=== PATIENT | male | born 1960 | race Caucasian/White ===

== ENCOUNTER 2018-12-14 21:30 | Inpatient (IN) | payer MEDICARE, MEDICAID ==
[~2018-12-14] VITALS: Ht 195.6 cm; Wt 62.1 kg
[2018-12-14 21:45] VITALS: BP 122/71
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
--- NOTE | 2018-12-14 21:50 | NUR ---
GPS ADMISSION NOTE, RECEIVED PATIENT FROM [facility]. PATIENT ARRIVED ON THIS UNIT AT 2145 VIA STRETCHER WITH 2 EMT ESCORTS. PATIENT ADMITTED ON A 5150 HOLD FOR DTO AND GD. PER HOLD PATIENT BECAME EXTREMELY AGITATED, AGGRESSIVE, AND VIOLENTLY REACTED WHEN ASKED TO RELINQUISH HIS PAPERWORK. PATIENT WAS YELLING," HOW DARE YOU TRY TO TAKE AWAY MY INSURANCE INFORMATION. 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 PATIENT IS INCAPABLE OF ARTICULATING A PLAN OF SELF CARE. THE 5150 WAS REVIEWED AND THE DOCUMENTATION IN THE 5150 HOLD APPEARS TO REFLECT THE PRESENTATION OF THE PATIENT. UPON FACE TO FACE ASSESSMENT PATIENT IS NOTED TO BEING HYPERVERBAL, DISHEVELED, DISORGANIZED, DEMANDING, COOPERATIVE, AND NEEDS REDIRECTION. PATIENT IS CURRENTLY LYING IN BED AWAKE, HAS NO S/S OR COMPLAINTS OF PAIN. PATIENT IS DISPLAYING NO S/S OF APPARENT DISTRESS. PATIENT BREATHING IS UNLABORED WITH EQUAL RISE AND FALL OF THE CHEST. PATIENT IS ALERT AND ORIENTATED X 3 ON ROOM AIR. PATIENT ASSISTED WITH TURING AND REPOSITIONING Q2HR AND PRN FOR COMFORT AND CIRCULATION. PATIENT HAS NO NEEDS AT THIS TIME. PATIENT DENIES SUICIDE IDEATIONS AND HOMICIDAL IDEATIONS AT THIS TIME. PATIENT REFUSED TO SIGNS ANY PAPER WORK. PATIENT ADVISED OF HIS HOLD AND PATIENT RIGHTS BOOKLET GIVEN. PATIENT IS UNDER THE PSYCHIATRIC CARE OF DR. ELMORE AND THE MEDICAL CARE OF DR LIMON. PATIENT BELONGINGS WERE INVENTORIED AND CHECKED FOR CONTRABAND. ALL CONTRABAND REMOVED AND STORED IN PATIENT HALLWAY LOCKER. PATIENT ADVANCED DIRECTIVES PREFERENCE, IMMUNIZATIONS QUESTIONER, NECESSARY PAPERWORK COMPLETED. PATIENT SKIN ASSESSMENT COMPLETED. PATIENT ORIENTATED TO ROOM, FLOOR, AND STAFF WITH ALL QUESTIONS ANSWERED. PATIENT EDUCATED ON THE USE OF THE CALL ARRIETA. PATIENT BED SIDE RAILS ARE UP X 2 FOR SAFETY. PATIENT BED IS LOCKED, LOW AND I WILL CONTINUE TO MONITOR THIS PATIENT Q 15 MIN WITH THE HELP OF STAFF TO MAINTAIN SAFETY.
[2018-12-14] MEDS ORDERED: LORAZEPAM 0.5 MG TABLET PO PRN (22:30)
[2018-12-14] MEDS ORDERED: ACETAMINOPHEN 325 MG TABLET PO PRN (22:30)
[2018-12-14] MEDS ORDERED: MAG HYDROX/AL HYDROX/SIMETH 30 ML UDC PO PRN (22:30)
[2018-12-14] MEDS ORDERED: MAGNESIUM HYDROXIDE 30 ML UDC PO PRN (22:30)
[2018-12-14] MEDS ORDERED: DIPH25CA83 PO (22:46)
[2018-12-14] MEDS ORDERED: MELA3TAB63 PO (22:47)
[2018-12-14] MEDS ORDERED: QUET100T PO (22:47)
[2018-12-14] MEDS ORDERED: CLON2TAB PO ×2 (22:49)
--- NOTE | 2018-12-14 22:55 | NUR ---
GPS/RN NOTES PATIENT REFUSE BLOOD SUGAR BE CHECKED AT THIS TIME, HAD A SNACK PRIOR AND REFUSE TO HAVE MRSA SWAB WILL FOLLOW UP IN AM.
[2018-12-14] MEDS ORDERED: BLOOD SUGAR DIAGNOSTIC 1 EACH STRIP IN ONE (23:00)
[2018-12-15 09:00] VITALS: BP 97/65
--- NOTE | 2018-12-15 09:22 | NUR ---
[facility] SWAB SENT, DONE OF BOTH NARES.
[2018-12-15] MEDS ORDERED: diphenhydrAMINE HCL 25 MG CAPSULE PO PRN (09:30)
[2018-12-15] MEDS: NICOTINE PATCH (14MG) 14 MG PATCH.TD24 TD SCH (10:26)
--- NOTE | 2018-12-15 10:30 | NUR ---
ruminates over things and repeats self often.
--- NOTE | 2018-12-15 14:30 | NUR ---
dr. mace in and discussed med regimen with pt. but refused to sign med consent.
[2018-12-15] MEDS: DIVALPROEX SODIUM 125 MG CAP.SPRINK PO SCH ×3 (15:00→20:53)
[2018-12-15 16:00] VITALS: BP 104/69
--- NOTE | 2018-12-15 16:33 | NUR ---
refused afternoon depakote.
[2018-12-15 20:02] VITALS: BP 148/68
[2018-12-15] MEDS: OLANZAPINE 5 MG/TAB.RAPDIS PO SCH (20:13)
[2018-12-16 07:49] LABS: BASOPHILS # (AUTO) 0.1 /CMM (0.0-0.2); HEMATOCRIT 45 % (39-51); HEMOGLOBIN 15.1 g/dL (13.5-17.5); LYMPHOCYTES % (AUTO) 30.4 % (20.0-44.0); MEAN CORPUSCULAR HGB CONC 34 g/dl (31.0-36.0); MEAN CORPUSCULAR VOLUME 95 fL (80-96); MONOCYTES # (AUTO) 0.5 /CMM (0.1-1.30); MONOCYTES % (AUTO) 7.8 % (2.0-12.0); NEUTROPHILS # (AUTO) 3.7 /CMM (1.8-8.9); NEUTROPHILS % (AUTO) 55.8 % (43.0-81.0); PLATELET COUNT (AUTO) 177 /CMM (150-450); WHITE BLOOD COUNT (AUTO) 6.7 K/uL (4.3-11.0)
[2018-12-16 07:59] LABS: CALCIUM, SERUM 8.6 mg/dL (8.5-10.1); CREATININE 0.7 mg/dL (0.6-1.3); POTASSIUM 3.8 mmol/L (3.5-5.1)
[2018-12-16 08:00] VITALS: BP 100/76
[2018-12-16] MEDS: OLANZAPINE 5 MG/TAB.RAPDIS PO SCH ×3 (08:01→21:02)
[2018-12-16] MEDS: NICOTINE PATCH (14MG) 14 MG PATCH.TD24 TD SCH (08:01)
[2018-12-16] MEDS: DIVALPROEX SODIUM 125 MG CAP.SPRINK PO SCH ×2 (08:06→21:00)
[2018-12-16 16:00] VITALS: BP 101/61
[2018-12-16 20:24] VITALS: BP 108/58
--- NOTE | 2018-12-16 22:18 | NUR ---
GPS RN NOTE: PATIENT REFUSED DEPAKOTE, EXPLAINED THE RISK AND BENEFITS X 3 ATTEMPTS, BUT PATIENT STILL REFUSED AND STATED THAT HE NEEDS TO TALK TO THE DOCTOR REGARDING HIS MEDICATIONS. WILL CONTINUE TO FOLLOW UP
[2018-12-17 08:00] VITALS: BP 102/61
[2018-12-17] MEDS: OLANZAPINE 5 MG/TAB.RAPDIS PO SCH ×3 (08:10→20:51)
[2018-12-17] MEDS: NICOTINE PATCH (14MG) 14 MG PATCH.TD24 TD SCH (08:10)
[2018-12-17] MEDS: DIVALPROEX SODIUM 125 MG CAP.SPRINK PO SCH (08:12)
--- NOTE | 2018-12-17 13:29 | NUR ---
Family contact: SW called the pts mother, Jackie ([phone]), and left a voicemail stating that the SW would like a call back to discuss the pts initial treatment plan and discharge plan.
--- NOTE | 2018-12-17 13:30 | NUR ---
Family contact: BILL called the pts cousin, Freda ([phone]), and the pts initial treatment and discharge plan was discussed. She stated that the pts mother is preoccupied with her being in hospice and that Freda would be the primary contact for this case. She stated that the pt has disability and that he makes around $1000 a month and that a board and care placement would be appropriate for him. SW stated that she will attempt to find placement in a board and care or a retirement facility. BILL stated that she would keep her updated regarding the pts care.
--- NOTE | 2018-12-17 15:00 | NUR ---
GROUP NOTE: SW encouraged pt to participate in group therapy on this present day discussing "discharge planning." Pt was asleep and not easily aroused.
--- NOTE | 2018-12-17 15:33 | NUR ---
Initial Discharge Plan: Pt currently resides at a home where his brother was living with him located at [address] [place] [address]. Per pt, he would like to return. BILL will work with the pt and the MD regarding appropriate discharge planning. SW will form a safe and proper discharge.
[2018-12-17 16:25] VITALS: BP 98/59
[2018-12-17 21:13] VITALS: BP 110/61
[2018-12-18 08:00] VITALS: BP 100/57
[2018-12-18] MEDS: NICOTINE PATCH (14MG) 14 MG PATCH.TD24 TD SCH (08:18)
[2018-12-18] MEDS: OLANZAPINE 5 MG/TAB.RAPDIS PO SCH ×3 (08:18→20:16)
--- NOTE | 2018-12-18 14:55 | NUR ---
Substance Abuse Intervention: SW conducted a substance abuse intervention with the pt due to his cannabis and alcohol use.
--- NOTE | 2018-12-18 14:56 | NUR ---
Family contact: SW called the pts cousin, Freda ([phone]), and left a message inquiring about the pts fingers per the request of Dr. Crawford. SW asked for a call back.
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
[2018-12-18 15:59] LABS: ALBUMIN 3.6 g/dL (3.4-5.0); BILIRUBIN,DIRECT 0.1 mg/dL (0.0-0.2); BILIRUBIN,TOTAL 0.3 mg/dL (0.2-1.0); TOTAL PROTEIN, SERUM 6.4 g/dL (6.4-8.2)
[2018-12-18 16:00] VITALS: BP 101/62
--- NOTE | 2018-12-18 18:11 | NUR ---
RN GPS NOTES PT AWAKE, ALERT AND ORIENTED, ATE DINNER, TOLERATED WELL, NO BEHAVIOR PROBLEM NOTED, COMPLIANT WITH MEDICATIONS, CALM AND COOPERATIVE WITH CARE, AMBULATES WITH STEADY GAIT.
[2018-12-18 20:35] VITALS: BP 104/60
[2018-12-18] MEDS ORDERED: ATORVASTATIN 10 MG TABLET PO SCH (22:00)
[2018-12-19 08:00] VITALS: BP 100/54
[2018-12-19] MEDS: NICOTINE PATCH (14MG) 14 MG PATCH.TD24 TD SCH (08:25)
[2018-12-19] MEDS: OLANZAPINE 5 MG/TAB.RAPDIS PO SCH ×3 (08:25→20:06)
--- NOTE | 2018-12-19 08:55 | NUR ---
PT MUTTERING TO SELF. AGREEABLE TO TAKING MEDICATION. WILL CONTINUE TO MONITOR.
[2018-12-19] MEDS: risperiDONE 1 MG TABLET PO SCH ×2 (10:00→20:00)
--- NOTE | 2018-12-19 10:27 | NUR ---
PT REFUSED TO TAKE MEDICATION RISPERDONE STATES IT GIVES PEOPLE WITH AUTISM SEIZURES.
[2018-12-19 16:00] VITALS: BP 100/75
--- NOTE | 2018-12-19 16:02 | NUR ---
Group Note: SW encouraged pt to participate in group therapy on 12/19/18 at 2pm discussing the topic of depression. 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 Pt is delusional and inappropriate for group.
--- NOTE | 2018-12-19 19:36 | NUR ---
UP IN BED, AWAKE, ALERT, ORIENTED X3. SHOWS NO S/S OF PAIN. CALM, QUIET. AMBULATORY. MED COMPLIANT. ENVIRONMENTAL SAFETY CHECK DONE. SAFETY PRECAUTION OBSERVED. BED ON LOWEST POSITION, BED ALARM ON. WILL CONTINUE TO MONITOR Q 15 MINS. FOR SAFETY.
--- NOTE | 2018-12-19 20:08 | NUR ---
REFUSED RISPERIDONE 1 MG TAB PO, PATIENT STATED," I DON'T TAKE IT BECAUSE I'M HAVING SEIZURES WHEN TAKING IT."
[2018-12-19 20:56] VITALS: BP 100/61
[2018-12-19] MEDS: ATORVASTATIN 40 MG TABLET PO SCH (21:30)
--- NOTE | 2018-12-20 04:33 | NUR ---
AWAKE, UNEASY, ANXIOUS, OFFERED ATIVAN 0.5 MG TAB 1 PO GIVEN.
[2018-12-20 08:00] VITALS: BP 92/63
[2018-12-20] MEDS: risperiDONE 1 MG TABLET PO SCH (08:00)
[2018-12-20] MEDS: OLANZAPINE 5 MG/TAB.RAPDIS PO SCH ×3 (08:10→19:54)
[2018-12-20] MEDS: NICOTINE PATCH (14MG) 14 MG PATCH.TD24 TD SCH (08:10)
--- NOTE | 2018-12-20 15:05 | NUR ---
EKG RESULT REPORTED TO DR. ELMORE AND ORDERED LITHIUM 150 MG PO Q12HR AND START FIRST DOSE NOW.
[2018-12-20] MEDS: LITHIUM CARBONATE 150 MG CAPSULE PO SCH ×2 (15:15→22:04)
[2018-12-20 16:00] VITALS: BP 106/70
--- NOTE | 2018-12-20 19:41 | NUR ---
GPS/RN OPENING NOTES RECEIVED PATIENT IN BED, AWAKE, ALERT X3, ABLE TO VERBALIZE NEEDS, CAN RESPOND AND REPORTED REQUEST TO HAVE A COPY OF HIS HEALTH INSURANCE CARD IN MORNING. NO PAIN REPORTED OR OBSERVED, RESTING COMFORTABLY. WILL MONITOR. RECEIVED ENDORSEMENT FROM AM RN FOR KWAME.
[2018-12-20 20:00] VITALS: BP 98/60
[2018-12-20 20:10] VITALS: BP 98/60
[2018-12-20] MEDS: ATORVASTATIN 40 MG TABLET PO SCH (22:04)
[2018-12-21 08:00] VITALS: BP 92/59
[2018-12-21] MEDS: NICOTINE PATCH (14MG) 14 MG PATCH.TD24 TD SCH (08:14)
[2018-12-21] MEDS: OLANZAPINE 5 MG/TAB.RAPDIS PO SCH ×3 (08:14→20:32)
[2018-12-21] MEDS: LITHIUM CARBONATE 150 MG CAPSULE PO SCH ×2 (08:14→16:43)
[2018-12-21 16:00] VITALS: BP 113/77
--- NOTE | 2018-12-21 17:34 | NUR ---
GPS NOTE THE PATIENT ALERT AND ORIENTED X3. DENIES SOB. RESPIRATION REGULAR AND UNLABORED. DENIES PAIN. DENIES SI, HI, VISUAL AND AUDITORY HALLUCINATIONS. THE PATIENT IN STABLE CONDITION. REMAINS MEDICATION COMPLIANT. BED LOW AND LOCKED. SAFETY CHECK DONE. WILL CONTINUE TO MONITOR.
--- NOTE | 2018-12-21 19:30 | NUR ---
GPS RN OPENING NOTES RECEIVED PATIENT SITTING AT THE EDGE OF THE BED. BED IS LOW AND LOCKED, SIDE RAILS UP X2. A.O X3. ABLE TO AMBULATE. PATIENT CALM AND COOPERATIVE, EASILY REDIRECTABLE. RESPIRATIONS ARE EVEN AND UNLABORED, NO SOB NOTED, DENIES PAIN. NO APPARENT DISTRESS. ID BAND ON, ASSESSED ENVIRONMENT FOR CONTRABAND AND SAFETY. WILL CONTINUE TO MONITOR Q15 MINS FOR SAFETY AND BEHAVIOR.
[2018-12-21 20:55] VITALS: BP 108/69
[2018-12-21] MEDS: ATORVASTATIN 40 MG TABLET PO SCH (21:37)
[2018-12-22 08:00] VITALS: BP 99/57
[2018-12-22] MEDS: OLANZAPINE 5 MG/TAB.RAPDIS PO SCH ×3 (08:05→19:58)
[2018-12-22] MEDS: NICOTINE PATCH (14MG) 14 MG PATCH.TD24 TD SCH (08:20)
[2018-12-22] MEDS: LITHIUM CARBONATE 150 MG CAPSULE PO SCH ×2 (08:21→17:12)
[2018-12-22 16:00] VITALS: BP 106/65
[2018-12-22 20:06] VITALS: BP 98/58
[2018-12-22] MEDS: ATORVASTATIN 40 MG TABLET PO SCH (21:08)
[2018-12-23] MEDS: OLANZAPINE 5 MG/TAB.RAPDIS PO SCH ×3 (07:52→22:25)
[2018-12-23 08:00] VITALS: BP 105/61
[2018-12-23] MEDS: NICOTINE PATCH (14MG) 14 MG PATCH.TD24 TD SCH (08:31)
[2018-12-23] MEDS: LITHIUM CARBONATE 150 MG CAPSULE PO SCH ×2 (08:31→16:45)
[2018-12-23 16:00] VITALS: BP 120/71
[2018-12-23 19:52] VITALS: BP 106/68
[2018-12-23] MEDS: ATORVASTATIN 40 MG TABLET PO SCH (22:24)
[2018-12-24 08:00] VITALS: BP 100/65
[2018-12-24 08:06] LABS: BASOPHILS # (AUTO) 0.1 /CMM (0.0-0.2); BASOPHILS % (AUTO) 0.8 % (0.0-2.0); EOSINOPHILS % (AUTO) 6.6 % (0.0-6.0); HEMATOCRIT 43 % (39-51); HEMOGLOBIN 14.1 g/dL (13.5-17.5); LYMPHOCYTES # (AUTO) 1.9 /CMM (0.8-4.8); LYMPHOCYTES % (AUTO) 28.2 % (20.0-44.0); MEAN CORPUSCULAR HGB CONC 33 g/dl (31.0-36.0); MEAN CORPUSCULAR VOLUME 96 fL (80-96); MONOCYTES # (AUTO) 0.7 /CMM (0.1-1.30); MONOCYTES % (AUTO) 10.5 % (2.0-12.0); NEUTROPHILS # (AUTO) 3.6 /CMM (1.8-8.9); NEUTROPHILS % (AUTO) 53.9 % (43.0-81.0); PLATELET COUNT (AUTO) 211 /CMM (150-450); RED BLOOD CELL COUNT(AUTO) 4.46 MIL/uL (4.5-6.0); WHITE BLOOD COUNT (AUTO) 6.6 K/uL (4.3-11.0)
[2018-12-24 08:21] LABS: ALBUMIN 3.5 g/dL (3.4-5.0); BILIRUBIN,TOTAL 0.5 mg/dL (0.2-1.0); CALCIUM, SERUM 8.8 mg/dL (8.5-10.1); CREATININE 0.7 mg/dL (0.6-1.3); POTASSIUM 3.9 mmol/L (3.5-5.1); TOTAL PROTEIN, SERUM 6.5 g/dL (6.4-8.2)
[2018-12-24] MEDS: NICOTINE PATCH (14MG) 14 MG PATCH.TD24 TD SCH (08:44)
[2018-12-24] MEDS: LITHIUM CARBONATE 150 MG CAPSULE PO SCH ×2 (08:45→17:19)
[2018-12-24] MEDS: OLANZAPINE 5 MG/TAB.RAPDIS PO SCH ×3 (08:47→20:06)
--- NOTE | 2018-12-24 15:10 | NUR ---
Individual Intervention: SW met with the pt and explained the reasoning behind SNF placement and the pt was not receptive. SW spoke to the pts nurse who also attempted to speak to the pt about his placement and have the pt understand.
--- NOTE | 2018-12-24 15:20 | NUR ---
Group Note: SW encouraged pt to participate in group therapy on 12/24/18 at 2pm discussing the topic of impaired reality testing. Pt began discussing that everyone does not believe him but he needs to go [facility], [facility], to have his fingers reattached to his body. SW stated that was not true and the pt became agitated and refused to attend group.
[2018-12-24 16:00] VITALS: BP 100/53
[2018-12-24 20:19] VITALS: BP 102/52
[2018-12-24] MEDS: ATORVASTATIN 40 MG TABLET PO SCH (22:11)
[2018-12-24] MEDS: TEMAZEPAM 7.5 MG CAPSULE PO PRN (22:11)
[2018-12-25 08:00] VITALS: BP 109/66
--- NOTE | 2018-12-25 08:44 | NUR ---
SNF Referral: BILL faxed referrals to two facilities listed below. [facility] to the fax number: [phone] [facility] to the fax number: [phone]
[2018-12-25] MEDS: NICOTINE PATCH (14MG) 14 MG PATCH.TD24 TD SCH (08:53)
[2018-12-25] MEDS: LITHIUM CARBONATE 150 MG CAPSULE PO SCH ×3 (08:53→16:15)
[2018-12-25] MEDS: OLANZAPINE 5 MG/TAB.RAPDIS PO SCH ×3 (08:53→20:15)
--- NOTE | 2018-12-25 13:42 | NUR ---
SNF Referral: [facility] to the fax number: [phone].
--- NOTE | 2018-12-25 13:42 | NUR ---
SNF Referral: RICHI ([phone]) from [facility] contacted the SW and stated that the pt was accepted to their facility.
--- NOTE | 2018-12-25 13:43 | NUR ---
SNF Referral: Jeffrey ([phone]) from [facility] contacted the SW and stated that the pt was accepted to their facility per medication compliance and clearance.
--- NOTE | 2018-12-25 13:44 | NUR ---
SNF Referral: Angy ([phone]) from [facility] stated that the pt was denied due to lack of skilled need.
--- NOTE | 2018-12-25 13:44 | NUR ---
SNF Referral: Cody ([phone]) from [facility] contacted the SW and stated that the pt was accepted to their facility.
--- NOTE | 2018-12-25 13:45 | NUR ---
Family Contact: Freda ([phone]), pts cousin, called the SW and inquired about an update regarding the pts discharge. SW stated that she sent out referrals and is looking for placement at this time. SW informed her that the pt is requested a locked facility and so once there is an acceptance and a discharge date, the SW will call and inform the family.
[2018-12-25 16:00] VITALS: BP 104/55
[2018-12-25 20:00] VITALS: BP 100/68
[2018-12-25 20:09] VITALS: BP 100/68
[2018-12-25] MEDS: ATORVASTATIN 40 MG TABLET PO SCH (21:09)
[2018-12-26 08:00] VITALS: BP 100/54
[2018-12-26] MEDS: LITHIUM CARBONATE 150 MG CAPSULE PO SCH ×3 (08:52→16:34)
[2018-12-26] MEDS: NICOTINE PATCH (14MG) 14 MG PATCH.TD24 TD SCH (08:53)
[2018-12-26] MEDS: OLANZAPINE 5 MG/TAB.RAPDIS PO SCH ×3 (08:53→20:44)
--- NOTE | 2018-12-26 12:25 | NUR ---
Individual Intervention: SW met with the pt and informed him that he will be discharged to [facility] in [place] and informed him that it is a locked facility. Pt agreed to the placement and the SW stated that his family will be informed about the placement.
--- NOTE | 2018-12-26 12:31 | NUR ---
Family Contact: SW called the pts cousin, Freda ([phone]), and informed her that the pt was accepted to [facility] which is a locked facility and then informed her that the pt has a tentative discharge date on Monday.
[2018-12-26 16:00] VITALS: BP 110/58
--- NOTE | 2018-12-26 16:04 | NUR ---
Group Note: SW encouraged pt to participate in group therapy on 12/25/18 at 2pm discussing the topic of family support. SW stated that his mother and cousin are involved with his care but the pt stated that he does not want anything to do with them because "they are working for the FBI and they are going to kill me." SW deemed that the pt was not appropriate for group therapy.
[2018-12-26 20:13] VITALS: BP 109/79
[2018-12-26] MEDS: ATORVASTATIN 40 MG TABLET PO SCH (21:25)
[2018-12-27 08:00] VITALS: BP 105/61
[2018-12-27] MEDS: NICOTINE PATCH (14MG) 14 MG PATCH.TD24 TD SCH (08:34)
[2018-12-27] MEDS: LITHIUM CARBONATE 150 MG CAPSULE PO SCH ×3 (08:34→16:49)
[2018-12-27] MEDS: OLANZAPINE 5 MG/TAB.RAPDIS PO SCH ×3 (08:34→20:02)
[2018-12-27 16:00] VITALS: BP 120/84
[2018-12-27 20:39] VITALS: BP 104/68
[2018-12-27] MEDS: ATORVASTATIN 40 MG TABLET PO SCH (21:14)
[2018-12-28 07:25] LABS: BASOPHILS % (AUTO) 0.5 % (0.0-2.0); EOSINOPHILS % (AUTO) 6.2 % (0.0-6.0); HEMATOCRIT 40 % (39-51); HEMOGLOBIN 13.7 g/dL (13.5-17.5); LYMPHOCYTES # (AUTO) 1.7 /CMM (0.8-4.8); LYMPHOCYTES % (AUTO) 22.3 % (20.0-44.0); MEAN CORPUSCULAR HGB CONC 34 g/dl (31.0-36.0); MEAN CORPUSCULAR VOLUME 94 fL (80-96); MONOCYTES # (AUTO) 0.8 /CMM (0.1-1.30); NEUTROPHILS # (AUTO) 4.7 /CMM (1.8-8.9); PLATELET COUNT (AUTO) 221 /CMM (150-450); RED BLOOD CELL COUNT(AUTO) 4.28 MIL/uL (4.5-6.0); WHITE BLOOD COUNT (AUTO) 7.7 K/uL (4.3-11.0)
[2018-12-28 07:41] LABS: ALBUMIN 3.3 g/dL (3.4-5.0); BILIRUBIN,TOTAL 0.4 mg/dL (0.2-1.0); CALCIUM, SERUM 8.6 mg/dL (8.5-10.1); CREATININE 0.7 mg/dL (0.6-1.3); POTASSIUM 3.9 mmol/L (3.5-5.1)
[2018-12-28 08:00] VITALS: BP 116/70
[2018-12-28] MEDS: NICOTINE PATCH (14MG) 14 MG PATCH.TD24 TD SCH (08:14)
[2018-12-28] MEDS: OLANZAPINE 5 MG/TAB.RAPDIS PO SCH ×3 (08:14→21:08)
[2018-12-28] MEDS: LITHIUM CARBONATE 150 MG CAPSULE PO SCH ×3 (08:14→16:59)
--- NOTE | 2018-12-28 13:51 | NUR ---
BILL informed pts cousin Freda ([phone]) of pts discharge date being set for Monday (12/28/18).
--- NOTE | 2018-12-28 13:54 | NUR ---
SW informed bereavement program coordinatorCody [[phone]] at [facility] of pts discharge date set for Monday12/31/18.
--- NOTE | 2018-12-28 14:45 | NUR ---
gps receivable executive: md visit seen and examined by kelley molina ([facility]) at this time.
--- NOTE | 2018-12-28 15:16 | NUR ---
GROUP NOTE: SW prompted pt to attend group on 12/28/18 at 2:30pm discussing goal setting for while they are in the hospital and after discharge, but pt was sleeping and not easily aroused.
[2018-12-28 16:00] VITALS: BP 99/61
[2018-12-28 20:00] VITALS: BP 110/46
[2018-12-28 20:47] VITALS: BP 110/46
[2018-12-28] MEDS: TEMAZEPAM 7.5 MG CAPSULE PO PRN (21:08)
[2018-12-28] MEDS: ATORVASTATIN 40 MG TABLET PO SCH (21:10)
[2018-12-29 08:00] VITALS: BP 104/56
[2018-12-29] MEDS: NICOTINE PATCH (14MG) 14 MG PATCH.TD24 TD SCH (08:13)
[2018-12-29] MEDS: OLANZAPINE 5 MG/TAB.RAPDIS PO SCH ×3 (08:13→21:34)
[2018-12-29] MEDS: LITHIUM CARBONATE 150 MG CAPSULE PO SCH ×3 (08:48→17:20)
[2018-12-29 16:00] VITALS: BP 105/69
--- NOTE | 2018-12-29 20:00 | NUR ---
GPS RN NOTE RECEIVED PATIENT SITTING AT THE EDGE OF THE BED AWAKE. A/O X3. TOLERATING ROOM AIR. RESPIRATIONS ARE EVEN AND UNLABORED. NO S/S SOB. DENIES PAIN AT THIS TIME. NO APPARENT DISTRESS NOTED. PATIENT DENIES SI/HI AT THIS TIME. PATIENT HAS NO NEEDS AT THIS TIME PATIENT IS CALM, COOPERATIVE, ISOLATIVE AND MED COMPLAINT AND RESPONDS WHEN ENGAGED.. PATIENT IS EDUCATED ON THE USE OF THE CALL ARRIETA. BED IS LOW AND LOCKED, SIDE RIALS UP X2. ENVIRONMENTAL CHECKS COMPLETED, NO CONTRABAND FOUND. ID BAND ON. WILL CONTINUE TO MONITOR [id number] TO ASSESS FOR SAFETY AND BEHAVIOR.
[2018-12-29 20:58] VITALS: BP 104/55
[2018-12-29] MEDS: ATORVASTATIN 40 MG TABLET PO SCH (21:34)
[2018-12-29] MEDS: TEMAZEPAM 7.5 MG CAPSULE PO PRN (21:38)
--- NOTE | 2018-12-29 22:20 | NUR ---
GPS RN NOTE REMOVED RESTORIL 7.5MG FROM OMNI CELL. TOOK OUT OF PACKAGING ABOUT TO GIVE TO PATIENT. PATIENT REFUSED LAST MIN. PLACED WASTE MEDICATION IN THE PHARMACEUTICAL WASTE BIN IN NURSES STATION.
[2018-12-30 08:00] VITALS: BP 100/62
[2018-12-30] MEDS: NICOTINE PATCH (14MG) 14 MG PATCH.TD24 TD SCH (08:41)
[2018-12-30] MEDS: OLANZAPINE 5 MG/TAB.RAPDIS PO SCH ×3 (08:41→20:04)
[2018-12-30] MEDS: LITHIUM CARBONATE 150 MG CAPSULE PO SCH ×3 (08:41→17:36)
[2018-12-30 16:01] VITALS: BP 119/68
[2018-12-30 19:51] VITALS: BP 104/70
[2018-12-30] MEDS: ATORVASTATIN 40 MG TABLET PO SCH (21:17)
[2018-12-31 08:00] VITALS: BP 105/69
[2018-12-31] MEDS: LITHIUM CARBONATE 150 MG CAPSULE PO SCH ×3 (08:20→16:03)
[2018-12-31] MEDS: OLANZAPINE 5 MG/TAB.RAPDIS PO SCH ×2 (08:20→12:05)
[2018-12-31] MEDS: NICOTINE PATCH (14MG) 14 MG PATCH.TD24 TD SCH (08:20)
--- NOTE | 2018-12-31 12:00 | NUR ---
Family Contact: SW called the pts cousin, Freda ([phone]), and informed her that the pt is going to be discharged to [facility] today around 5pm.
--- NOTE | 2018-12-31 15:19 | NUR ---
Discharge Note: Pt was discharged to [facility] ([facility]) [place] at [address] [place] [address]; ([phone]). Pt was transported via [facility][id number] at 5PM. Pts cousin, Freda ([phone]), was aware of the placement. Upon discharge, the pt appeared to be in a euthymic mood and presented with a distressed affect. Pt denied both suicidal and homicidal ideation as well as auditory and visual hallucinations. Pt was provided with substance abuse referrals that are listed below. Pt will be under the care of his psychiatrist, Dr. Abbie uHizar, located at [address] [address]; and his hospice educator, Dr. Vivar, located at [address] [place] [address]; . Substance Abuse Referrals: [facility] [address] [place] [address] Tel. [facility] [address] [place] Provider Mental Health Treatment Tele-dermatology HIV Services Telemedicine Services [place] [address] [place] [address] [facility] [address] [place] [address]
--- NOTE | 2018-12-31 15:42 | NUR ---
RN NOTE: ATTEMPTED TO CALL AND GIVE REPORT TO [facility]. NURSE TO CALL BACK TO RECEIVE REPORT.
[2018-12-31 16:00] VITALS: BP 97/76
--- NOTE | 2018-12-31 16:25 | NUR ---
RN NOTE: ATTEMPTED TO CALL AND GIVE REPORT TO NURSE AT SNF. NO ANSWER TO TELEPHONE CALL.
--- NOTE | 2018-12-31 18:12 | NUR ---
INTERNET TECHNOLOGY MANAGER NOTE: PT DISCHARGED AT 18:10 TO [facility] VIA AMBULANCE. REPORT GIVEN TO YANIRA MOSES. RN VERBALIZED UNDERSTANDING. PT DENIED SI/HI/AH/VH AT TIME OF DISCHARGE. BELONGINGS GIVEN TO PATIENT AND SIGNED. PT TO FOLLOW SNF FURNACE PACKER AND PSYCHIATRIST. PT PICKED UP VIA AMBULANCE.
== END 2018-12-31 18:10 | DRG 885 ==
LOC: GPS 21:30
PROVIDERS: ADMIT Psychiatry & Neurology Psychosomatic Medicine; ATTEND Internal Medicine
DX: F25.0 Schizoaffective disorder, bipolar type (principal); F23 Brief psychotic disorder; F41.9 Anxiety disorder, unspecified; E78.5 Hyperlipidemia, unspecified; G89.29 Other chronic pain; M54.9 Dorsalgia, unspecified; F32.9 Major depressive disorder, single episode, unspecified; F84.0 Autistic disorder; Z91.19 Patient's noncompliance with other medical treatment and regimen; F19.10 Other psychoactive substance abuse, uncomplicated; F09 Unspecified mental disorder due to known physiological condition
CPT/HCPCS: 36415; 80048-TC; 80053-TC; 80061-TC; 80076-TC; 82962-TC; 85025-TC; 87081-TC; Q0163

== ENCOUNTER 2019-10-27 20:17 | Inpatient (IN) | payer MEDICARE, OTHER ==
[~2019-10-27 20:17] MED LIST: DIPH25CA83 PO
[2019-10-27 21:00] VITALS: BP 121/78
--- NOTE | 2019-10-27 21:00 | NUR ---
GPS-MANAGER TRAVEL NOTE: ADMITTED A 59-YR OLD, MALE, FROM [facility] IN [place]. ADMITTED ON 5150 FOR GD. 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 I HAVE A HIGH CALCULI NUMBER AND I AM A GENIUS. I NEED TO BE MEDICATED TO GO TO SLEEP. PATIENT DOES NOT HAVE SAFE PLAN OF CARE IF DISCHARGED. UPON FACE TO FACE ASSESSMENT, PATIENT PRESENTS ALERT AND ORIENTED X2, ANXIOUS, DISORGANIZED, DELUSIONAL, REORIENTATION PROVIDED. PT WAS ADVISED OF HIS HOLD. PT'S RIGHTS HANDBOOK AND A GUIDE TO PRESCRIPTION MEDICATIONS GIVEN. IN NO APPARENT DISTRESS NOTED. BELONGINGS WERE INVENTORIED AND CHECKED FOR CONTRABAND. PT. IS UNDER THE PSYCHIATRIC CARE OF DR. REAGAN ORDERS OBTAINED, AND UNDER THE MEDICAL CARE OF DR. LIMON. SKIN BODY ASSESSMENT DONE. PT DENIES PAIN/DISCOMFORT AT THIS TIME. BED LOCKED AND PLACED IN LOWEST POSITION TO MAINTAIN SAFETY. FALL PRECAUTIONS IMPLEMENTED. WILL CONTINUE TO MONITOR Q15 MIN ROUNDS FOR SAFETY AND BEHAVIOR.
[2019-10-27] MEDS ORDERED: MAGNESIUM HYDROXIDE 30 ML UDC PO PRN (22:30)
[2019-10-27] MEDS ORDERED: BLOOD SUGAR DIAGNOSTIC 1 EACH STRIP IN ONE (22:30)
[2019-10-27] MEDS ORDERED: MAG HYDROX/AL HYDROX/SIMETH 30 ML UDC PO PRN (22:30)
[2019-10-27] MEDS ORDERED: TEMAZEPAM 7.5 MG CAPSULE PO PRN (22:30)
[2019-10-27] MEDS ORDERED: ACETAMINOPHEN 325 MG TABLET PO PRN (22:30)
[2019-10-27] MEDS: LORAZEPAM 0.5 MG TABLET PO PRN (23:13)
--- NOTE | 2019-10-27 23:13 | NUR ---
GPS-RN NOTE: ANXIETY PATIENT IS VERY ANXIOUS AND RESTLESS. ADMINISTERED ATIVAN 1MG PO ORDERED. WILL CONTINUE TO MONITOR FOR SAFETY.
[2019-10-28] MEDS ORDERED: NICO-676 TP (04:14)
[2019-10-28] MEDS ORDERED: QUET100T PO (04:14)
[2019-10-28] MEDS ORDERED: MELA3TAB41 PO (04:14)
[2019-10-28 08:00] VITALS: BP 127/91
[2019-10-28] MEDS: LORAZEPAM 0.5 MG TABLET PO PRN ×2 (08:02→21:33)
--- NOTE | 2019-10-28 08:04 | NUR ---
RN NOTE- PT ANXIOUS RESTLESS PACING. ATIVAN 1 MG GIVEN
[2019-10-28 08:29] LABS: CHOLESTEROL 252 mg/dL (<200); HDL CHOLESTEROL 44 mg/dL (40-60); LDL 189 mg/dL (0-99); TRIGLYCERIDES 96 mg/dL (30-150)
--- NOTE | 2019-10-28 09:00 | NUR ---
RN NOTE- PT PACING RESTLESS RESPONDING TO INTERNAL STIMULUS, TALKING OUT LOUD TO EMPTY ROOM, GESTURING ACTING AGGRESSIVE TO HALLUCINATIONS, PO INTAKE GOOD MED COMPLIANT SUSPICIOUS
[2019-10-28 09:36] LABS: ALBUMIN 3.2 g/dL (3.4-5.0); BILIRUBIN,TOTAL 0.4 mg/dL (0.2-1.0); CALCIUM, SERUM 8.8 mg/dL (8.5-10.1); CREATININE 0.7 mg/dL (0.6-1.3); POTASSIUM 3.8 mmol/L (3.5-5.1); TOTAL PROTEIN, SERUM 5.9 g/dL (6.4-8.2)
--- NOTE | 2019-10-28 11:05 | NUR ---
FAMILY CONTACT: SW contacted pts cousin Freda ([phone]) for collateral information. Per cousin, she states pt has been living with his mother in [place] for the past 9 months (since his last psychiatric hospitalization). She states that pt traveled on train from [place] to [facility] to see the doctor and when he arrived he went to his old address and refused to leave. Per cousin she states she realized pt was off his psychiatric medication and that is when she took him to [facility] for psychiatric evaluation. Per cousin, pt has been non-medication compliant and refuses to see an outpatient psychiatrist. Freda states that if pts mother agrees for pt to return home she will provide transportation.
--- NOTE | 2019-10-28 11:13 | NUR ---
FAMILY CONTACT: SW contacted pts mother Cori ([phone]) for collateral information and treatment/discharge planning. Mother states that she was not aware that pt was placed on a 5150 hold and she was worried not knowing where pt was. She states that pt has been off his medications for 9 months since he discharged from [facility]. She states that pt is paranoid and delusional and thinks he is trying to poison him. Mother states that pt refuses medical and psychiatric care and she is unable to control him at home. Mother states that if pt continues to refuse medications and his behavior is not stable she wishes for pt to be placed at a SNF short-term.
--- NOTE | 2019-10-28 14:39 | NUR ---
INITIAL DISCHARGE PLAN: Per mother Cori ([phone]) pt lives at home with her in [place], however, she wishes for pt to be discharged to a SNF. SW will help form a safe and proper discharge in collaboration with .
[2019-10-28 16:00] VITALS: BP 105/73
[2019-10-28 20:29] VITALS: BP 102/63
--- NOTE | 2019-10-28 21:30 | NUR ---
GPS RN NOTES: PATIENT APPROACHED THE MANAGER UNIT AND DISCUSSED ABOUT BOXING AND HOW HE LIKES THE WAY [employer] CORREA FIGHTS. SO MANAGER UNIT WENT AHEAD ON THE CONVERSATION AND ASKED HOW MUCH HE LIKES THE BOXING GAME. PATIENT REPLIED:" I REALLY DON'T LIKE TO SEE PEOPLE FIGHTING, I HATE I. I AM NOT LIKE THAT. I HATE IT SO MUCH, GOSH!, I WANNA KILL SOMEBODY!" MANAGER UNIT TOLD PATIENT WE CANNOT DO THAT TO ANYBODY BECAUSE IT IS NOT RIGHT. PATIENT THEN WENT INTO THE ROOM.
[2019-10-28] MEDS: SIMVASTATIN 10 MG TABLET PO SCH (22:00)
[2019-10-29 08:00] VITALS: BP 106/61
[2019-10-29] MEDS: HALOPERIDOL 5 MG TABLET PO SCH ×3 (08:25→16:31)
[2019-10-29] MEDS: BENZTROPINE MESYLATE (1 MG) 1 MG TABLET PO SCH ×3 (08:25→16:31)
[2019-10-29] MEDS: DIVALPROEX SODIUM 250 MG TABLET.DR PO SCH ×3 (08:25→16:31)
--- NOTE | 2019-10-29 09:00 | NUR ---
RN NOTE- RESPONDING TO INTERNAL STIMULUS, ISOLATIVE GESTURING WILDLY AT EL IN ROOM. STARTED ON HALKATHY RAMACHANDRAN AND HOSEATE. MED COMPLIANT
[2019-10-29 16:00] VITALS: BP 100/67
[2019-10-29 20:11] VITALS: BP 114/67
[2019-10-29] MEDS: SIMVASTATIN 10 MG TABLET PO SCH (22:00)
[2019-10-29] MEDS: LORAZEPAM 0.5 MG TABLET PO PRN (22:07)
--- NOTE | 2019-10-29 22:09 | NUR ---
GPS RN NOTE: ANXIETY PATIENT VERBALIZED THAT HE IS ANXIOUS, RESTLESS & EASILY AGITATED, WANTED TO TAKE ATIVAN, PRN 1 MG ATIVAN GIVEN. WILL MONITOR CLOSELY FOR EFFECTIVENESS.
--- NOTE | 2019-10-29 22:11 | NUR ---
GPS RN NOTE: REFUSED ZOCOR PATIENT REFUSED TO TAKE ZOCOR SCHEDULED DESPITE OF RISKS & BENEFITS EXPLANATIONS.
[2019-10-29] MEDS ORDERED: clonazePAM 0.5 MG TABLET PO PRN (22:30)
[2019-10-29] MEDS: clonazePAM 0.5 MG TABLET PO SCH (22:30)
--- NOTE | 2019-10-29 22:30 | NUR ---
GPS RN NOTE SEEN BY DR. REAGAN WITH NEW ORDER OF KLONOPIN ONCE TO BE GIVEN. NOTED & CARRIED OUT.
--- NOTE | 2019-10-29 22:57 | NUR ---
GPS RN NOTE: KLONOPIN NOT GIVEN PATIENT WANTED TO TAKE ATIVAN AT 2133 & ATIVAN 1 MG WAS ADMINISTERED ORDERED. PATIENT IS ASLEEP AT THIS TIME. ATIVAN IS EFFECTIVE. KLONOPIN NOT GIVEN AT THIS TIME.
[2019-10-30 08:00] VITALS: BP 115/67
[2019-10-30] MEDS: BENZTROPINE MESYLATE (1 MG) 1 MG TABLET PO SCH ×4 (09:00→16:52)
[2019-10-30] MEDS: HALOPERIDOL 5 MG TABLET PO SCH ×4 (09:00→17:00)
[2019-10-30] MEDS: clonazePAM 0.5 MG TABLET PO SCH ×2 (09:18→17:11)
[2019-10-30] MEDS: DIVALPROEX SODIUM 250 MG TABLET.DR PO SCH ×3 (09:18→17:11)
[2019-10-30 16:00] VITALS: BP 119/71
--- NOTE | 2019-10-30 16:20 | NUR ---
needy and out at desk often.pleasant.med compliant.
--- NOTE | 2019-10-30 18:38 | NUR ---
dr. payan aware pt. refusing cogentin and haldol,but has been taking depakote and clonopin
[2019-10-30 20:06] VITALS: BP 99/66
[2019-10-30 20:09] VITALS: BP 106/62
[2019-10-30] MEDS: OLANZAPINE 5 MG TABLET PO SCH (20:10)
[2019-10-30] MEDS: SIMVASTATIN 10 MG TABLET PO SCH (21:11)
--- NOTE | 2019-10-30 21:12 | NUR ---
GPS RN NOTE: REFUSED ZOCOR PATIENT REFUSED TO TAKE ZOCOR SCHEDULED DESPITE OF RISKS & BENEFITS EXPLANATIONS.
[2019-10-31 05:50] VITALS: BP 107/65
[2019-10-31] MEDS: OLANZAPINE 5 MG TABLET PO SCH ×2 (06:03→17:52)
[2019-10-31 08:00] VITALS: BP 99/60
[2019-10-31] MEDS: DIVALPROEX SODIUM 250 MG TABLET.DR PO SCH ×3 (08:23→16:20)
[2019-10-31] MEDS: clonazePAM 0.5 MG TABLET PO SCH ×2 (08:23→16:20)
--- NOTE | 2019-10-31 09:53 | NUR ---
SNF REFERRAL: SW faxed SNF referral to [facility] ([facility]) [address] [place] [address] P: [phone] for review.
--- NOTE | 2019-10-31 11:11 | NUR ---
SNF CONTACT: SW received a call from Cody, pharmacy intake coordinator at [facility] ([facility]) [address] [place] [address] P: [phone] who stated pt has been accepted to the facility.
[2019-10-31] MEDS: LORAZEPAM 0.5 MG TABLET PO PRN (13:27)
--- NOTE | 2019-10-31 13:40 | NUR ---
Pt. is anxious, paces, and mumbles to self and prn med of ativan po given. Will continue to monitor for safety.
[2019-10-31 16:00] VITALS: BP 95/68
[2019-10-31 20:00] VITALS: BP 109/69
[2019-10-31 20:21] VITALS: BP 105/67
[2019-10-31] MEDS: SIMVASTATIN 10 MG TABLET PO SCH (22:00)
--- NOTE | 2019-10-31 22:08 | NUR ---
GPS RN NOTE: REFUSED ZOCOR PATIENT REFUSED TO TAKE ZOCOR SCHEDULED DESPITE OF RISKS & BENEFITS EXPLANATIONS.
[2019-11-01] MEDS: OLANZAPINE 5 MG TABLET PO SCH ×2 (06:06→17:57)
[2019-11-01] MEDS: DIVALPROEX SODIUM 250 MG TABLET.DR PO SCH ×3 (07:46→17:56)
[2019-11-01] MEDS: clonazePAM 0.5 MG TABLET PO SCH ×2 (07:46→17:56)
[2019-11-01 08:00] VITALS: BP 106/53
--- NOTE | 2019-11-01 15:27 | NUR ---
INDIVIDUAL INTERVENTION: SW met [facility] pt to discuss his discharge plan. Pt is very delusional and began saying that he was going to return back to the [place] address listed on facesheet. SW stated that he no longer lived there and could not return and will be going to a SNF due to him not being able to return to his mothers house. Pt then stated that he did not have a mother and that his mother was the Sun. Pt was agitated and stated that he will not go to a SNF and stated that he needed to call the FBI because a woman was trying to pretend she was his mother and run his life. SW was unable to continue conversation with pt as pt is delusional and paranoid and was not engaging in an appropriate conversation.
[2019-11-01 16:00] VITALS: BP 102/61
[2019-11-01 20:23] VITALS: BP 94/66
[2019-11-01] MEDS: SIMVASTATIN 10 MG TABLET PO SCH (21:07)
[2019-11-01 21:23] VITALS: BP 107/70
[2019-11-01] MEDS: LORAZEPAM 0.5 MG TABLET PO PRN (22:01)
--- NOTE | 2019-11-01 22:03 | NUR ---
RN NOTES: ANXIETY PT. C/O FEELING ANXIOUS ,HYPERVERBAL, RESTLESS, PARANOID, ATIVAN 1MG PO PRN GIVEN PER PT. REQUEST, WILL CONTINUE TO MONITOR.
[2019-11-02] MEDS: OLANZAPINE 5 MG TABLET PO SCH ×3 (06:20→16:03)
[2019-11-02] MEDS: DIVALPROEX SODIUM 250 MG TABLET.DR PO SCH ×3 (07:32→16:03)
[2019-11-02] MEDS: clonazePAM 0.5 MG TABLET PO SCH ×2 (07:32→16:03)
[2019-11-02 08:00] VITALS: BP 95/65
[2019-11-02] MEDS: NICOTINE PATCH (14MG) 14 MG PATCH.TD24 TD SCH (13:17)
[2019-11-02] MEDS: LORAZEPAM 0.5 MG TABLET PO PRN (13:17)
[2019-11-02 16:00] VITALS: BP 90/56
[2019-11-02 20:25] VITALS: BP 116/58
[2019-11-02] MEDS: SIMVASTATIN 10 MG TABLET PO SCH (21:12)
[2019-11-03 06:58] LABS: BASOPHILS % (AUTO) 0.8 % (0.0-2.0); EOSINOPHILS % (AUTO) 3.6 % (0.0-6.0); HEMATOCRIT 47 % (39-51); HEMOGLOBIN 15.5 g/dL (13.5-17.5); LYMPHOCYTES # (AUTO) 2.2 /CMM (0.8-4.8); LYMPHOCYTES % (AUTO) 37.2 % (20.0-44.0); MEAN CORPUSCULAR HGB CONC 33 g/dl (31.0-36.0); MEAN CORPUSCULAR VOLUME 95 fL (80-96); MONOCYTES # (AUTO) 0.7 /CMM (0.1-1.30); MONOCYTES % (AUTO) 11.3 % (2.0-12.0); NEUTROPHILS # (AUTO) 2.8 /CMM (1.8-8.9); NEUTROPHILS % (AUTO) 47.1 % (43.0-81.0); PLATELET COUNT (AUTO) 192 /CMM (150-450)
[2019-11-03 07:21] LABS: ALBUMIN 3.7 g/dL (3.4-5.0); BILIRUBIN,TOTAL 0.7 mg/dL (0.2-1.0); CALCIUM, SERUM 8.9 mg/dL (8.5-10.1); CREATININE 0.7 mg/dL (0.6-1.3); POTASSIUM 4.3 mmol/L (3.5-5.1)
[2019-11-03] MEDS: OLANZAPINE 5 MG TABLET PO SCH ×2 (07:39→12:44)
[2019-11-03] MEDS: DIVALPROEX SODIUM 250 MG TABLET.DR PO SCH ×3 (07:39→16:29)
[2019-11-03] MEDS: clonazePAM 0.5 MG TABLET PO SCH ×2 (07:39→16:29)
[2019-11-03] MEDS: NICOTINE PATCH (14MG) 14 MG PATCH.TD24 TD SCH (07:40)
[2019-11-03 08:00] VITALS: BP 104/62
[2019-11-03] MEDS: LORAZEPAM 0.5 MG TABLET PO PRN (12:46)
[2019-11-03 16:00] VITALS: BP 125/68
[2019-11-03] MEDS: OLANZAPINE 2.5 MG TABLET PO SCH (16:30)
[2019-11-03] MEDS: DIVALPROEX SODIUM 500 MG TABLET.DR PO SCH (19:59)
[2019-11-03 20:17] VITALS: BP 100/70
[2019-11-03] MEDS: SIMVASTATIN 10 MG TABLET PO SCH (21:06)
[2019-11-04 08:00] VITALS: BP 106/69
[2019-11-04] MEDS: DIVALPROEX SODIUM 250 MG TABLET.DR PO SCH ×3 (08:21→16:27)
[2019-11-04] MEDS: clonazePAM 0.5 MG TABLET PO SCH ×2 (08:21→16:27)
[2019-11-04] MEDS: OLANZAPINE 5 MG TABLET PO SCH ×2 (08:21→13:00)
[2019-11-04] MEDS: NICOTINE PATCH (14MG) 14 MG PATCH.TD24 TD SCH (08:21)
[2019-11-04] MEDS: LORAZEPAM 0.5 MG TABLET PO PRN (09:57)
--- NOTE | 2019-11-04 09:58 | NUR ---
RN NOTE: ANXIETY PT EXHIBITING INCREASED ANXIETY. ARGUING WITH SELF. RESPONDING TO INTERNAL STIMULI. SPEAKING RE A LOCK ON A BRIEFCASE. MEDICATED WITH ATIVAN 1MG PO PRN
[2019-11-04 16:00] VITALS: BP 114/66
[2019-11-04] MEDS: OLANZAPINE 2.5 MG TABLET PO SCH (16:27)
[2019-11-04 20:01] VITALS: BP 96/50
[2019-11-04 20:04] VITALS: BP 109/60
[2019-11-04] MEDS: DIVALPROEX SODIUM 500 MG TABLET.DR PO SCH (20:09)
[2019-11-04] MEDS: SIMVASTATIN 10 MG TABLET PO SCH (21:00)
--- NOTE | 2019-11-04 21:00 | NUR ---
GPS RN NOTE: REFUSED ZOCOR PATIENT REFUSED TO TAKE ZOCOR SCHEDULED DESPITE OF RISKS & BENEFITS EXPLANATIONS.
[2019-11-05] MEDS: OLANZAPINE 5 MG TABLET PO SCH ×2 (07:55→12:17)
[2019-11-05 08:00] VITALS: BP 113/78
[2019-11-05] MEDS: NICOTINE PATCH (14MG) 14 MG PATCH.TD24 TD SCH (08:04)
[2019-11-05] MEDS: DIVALPROEX SODIUM 250 MG TABLET.DR PO SCH ×3 (08:04→16:19)
[2019-11-05] MEDS: clonazePAM 0.5 MG TABLET PO SCH ×2 (08:04→16:19)
[2019-11-05] MEDS: LORAZEPAM 0.5 MG TABLET PO PRN (12:17)
--- NOTE | 2019-11-05 12:18 | NUR ---
RN NOTE: AGITATION/ANXIETY PT EXHIBITING INCREASED ANXIETY, AGITATION, INCREASED RESPONDING TO INTERNAL STIMULI AND VH/AH. MEDICATED WITH ATIVAN 1MG PO PRN
--- NOTE | 2019-11-05 15:22 | NUR ---
Family Contact: SW spoke with patients mother Cori ([phone]) and informed of the patient's acceptance at [facility], and Cori is aware and is agreeable with discharge plans.
[2019-11-05 16:00] VITALS: BP 106/64
[2019-11-05] MEDS: OLANZAPINE 2.5 MG TABLET PO SCH (16:18)
[2019-11-05] MEDS ORDERED: OLANZAPINE 10 MG TABLET PO SCH (17:30)
[2019-11-05] MEDS: DIVALPROEX SODIUM 500 MG TABLET.DR PO SCH (20:51)
[2019-11-05 20:58] VITALS: BP 100/69
[2019-11-05] MEDS: SIMVASTATIN 10 MG TABLET PO SCH (21:04)
[2019-11-06 08:00] VITALS: BP 92/65
[2019-11-06] MEDS: clonazePAM 0.5 MG TABLET PO SCH ×2 (09:10→17:31)
[2019-11-06] MEDS: NICOTINE PATCH (14MG) 14 MG PATCH.TD24 TD SCH (09:11)
[2019-11-06] MEDS: OLANZAPINE 10 MG TABLET PO SCH ×2 (09:11→20:34)
[2019-11-06] MEDS: DIVALPROEX SODIUM 250 MG TABLET.DR PO SCH ×3 (09:13→17:31)
--- NOTE | 2019-11-06 09:43 | NUR ---
BILL Brief Individual Counseling: SW met with patient to provide brief individual counseling. SW prompted patient to discuss his presenting delusional thought process. Patient thought process was tangential and grandiose. 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 BILL was unable to provide a meaningful therapy sessions due to patient's disorganized thoughts.
[2019-11-06 16:00] VITALS: BP 108/71
[2019-11-06 20:45] VITALS: BP 105/59
[2019-11-06] MEDS: SIMVASTATIN 10 MG TABLET PO SCH (21:16)
--- NOTE | 2019-11-06 21:17 | NUR ---
GPS RN NOTE: REFUSED ZOCOR PATIENT REFUSED TO TAKE ZOCOR SCHEDULED DESPITE OF RISKS & BENEFITS EXPLANATIONS.
[2019-11-07 08:00] VITALS: BP 111/70
[2019-11-07] MEDS: DIVALPROEX SODIUM 500 MG TABLET.DR PO SCH ×3 (08:29→16:00)
[2019-11-07] MEDS: clonazePAM 0.5 MG TABLET PO SCH ×2 (08:29→16:00)
[2019-11-07] MEDS: OLANZAPINE 10 MG TABLET PO SCH ×2 (08:30→20:58)
[2019-11-07] MEDS: NICOTINE PATCH (14MG) 14 MG PATCH.TD24 TD SCH (08:31)
[2019-11-07 16:00] VITALS: BP 113/73
[2019-11-07 19:55] VITALS: BP 115/68
[2019-11-07 20:04] VITALS: BP 115/68
[2019-11-07] MEDS: SIMVASTATIN 10 MG TABLET PO SCH (22:00)
--- NOTE | 2019-11-07 22:07 | NUR ---
GPS RN NOTE: REFUSED ZOCOR PATIENT REFUSED TO TAKE ZOCOR SCHEDULED DESPITE OF RISKS & BENEFITS EXPLANATIONS, STATED," I DO NOT HAVE ANY CHOLESTEROL PROBLEM & I DON'T NEED IT."
[2019-11-08 08:00] VITALS: BP 96/72
--- NOTE | 2019-11-08 08:20 | NUR ---
Discharge Note: Patient will be discharged to [facility], [place] [address] ([phone]) via Ambulance transportation at 11:00AM today. V Belt Finisher spoke with Cody, Center Consultant at [facility] ([phone]), and he confirmed that patient will be accepted at their facility today. Patients mother Cori ([phone]) is made aware and is agreeable with discharge plans. Patient is alert and oriented x2. Patient is not able to plan for self-care at this time but is willing to accept care provided for her at the facility. Patient denies suicidal or homicidal ideation. Patient is aware and agreeable with discharge plans. Patient presents with appropriate mood and congruent affect. Patient will follow-up with Psychiatrist Dr. Gallardo [address], [place] [address] ([phone]) and Teaching Music Lessons Dr. Vivar [address] [facility] [address], [place] [address] ([phone]).
[2019-11-08] MEDS: OLANZAPINE 10 MG TABLET PO SCH (09:20)
[2019-11-08] MEDS: clonazePAM 0.5 MG TABLET PO SCH (09:20)
[2019-11-08] MEDS: NICOTINE PATCH (14MG) 14 MG PATCH.TD24 TD SCH (09:20)
[2019-11-08] MEDS: DIVALPROEX SODIUM 500 MG TABLET.DR PO SCH ×2 (09:20→13:00)
--- NOTE | 2019-11-08 09:29 | NUR ---
DR. REAGAN GAVE AN ORDER TO D/C HOLD AND D/C TO [facility] AND TO FOLLOW UP WITH PSYCH AND MEDICAL DOCTORS AND TO CONTINUE ANNE EMDS INCLUDING PRN. DR. AMARAL MADE AWARE OF THE DISCHARGE AND RECONCILED THE MEDS. Addendum: 11/08/19 at 1559 by LUCY LOPEZ RN PT. WITHOUT DISTRESS, DENIES SUICIDAL AND HOMICIDAL.
--- NOTE | 2019-11-08 10:00 | NUR ---
received pt. alert and oriented x2.no specific complaints offered,with plans for dc today.
--- NOTE | 2019-11-08 10:30 | NUR ---
REFUSED DISCHARGE PHOTOS.
[2019-11-08] MEDS: LORAZEPAM 0.5 MG TABLET PO PRN ×2 (13:18→13:22)
--- NOTE | 2019-11-08 13:27 | NUR ---
GIVEN ATIVAN FOR ANXIETY AND REFUSED AFTERNOON DEPAKOTE.
--- NOTE | 2019-11-08 15:10 | NUR ---
all papers signed,given belongings,call to transferring facility.regarding pt. status.report given. report to drivers,taken via amb. to facility.pt. denies suicidal,homicidal ideation.given rxs as well with belongings.
== END 2019-11-08 15:10 | DRG 885 ==
LOC: GPS 20:17
PROVIDERS: ADMIT Psychiatry & Neurology Psychiatry; ATTEND Internal Medicine
DX: F25.9 Schizoaffective disorder, unspecified (principal); E44.1 Mild protein-calorie malnutrition; F29 Unspecified psychosis not due to a substance or known physiological condition; F41.9 Anxiety disorder, unspecified; E78.5 Hyperlipidemia, unspecified; F43.10 Post-traumatic stress disorder, unspecified; Z72.0 Tobacco use; F32.9 Major depressive disorder, single episode, unspecified
CPT/HCPCS: 36415; 80053-TC; 80061-TC; 80164-TC; 82962-TC; 84443-TC; 85025-TC; 87081-TC

== ENCOUNTER 2020-04-01 17:45 | Inpatient (IN) | payer MEDICARE, OTHER ==
[~2020-04-01] VITALS: Ht 190.5 cm; Wt 68.0 kg
[~2020-04-01 17:45] MED LIST changes: +MELA3TAB41 PO; +NICO-676 TP
--- NOTE | 2020-04-01 18:00 | NUR ---
KIM ATWOOD FROM [facility] PRIOR TO POSSIBLE GPS ADMISSION. VS CHECKED. SEEN BY
[2020-04-01 18:26] LABS: BASOPHILS % (AUTO) 0.8 % (0.0-2.0); EOSINOPHILS % (AUTO) 3.5 % (0.0-6.0); HEMATOCRIT 44 % (39-51); HEMOGLOBIN 15.2 g/dL (13.5-17.5); LYMPHOCYTES # (AUTO) 2.5 /CMM (0.8-4.8); LYMPHOCYTES % (AUTO) 38.6 % (20.0-44.0); MEAN CORPUSCULAR HGB CONC 34 g/dl (31.0-36.0); MEAN CORPUSCULAR VOLUME 94 fL (80-96); MONOCYTES # (AUTO) 0.6 /CMM (0.1-1.30); NEUTROPHILS # (AUTO) 3.2 /CMM (1.8-8.9); NEUTROPHILS % (AUTO) 48.1 % (43.0-81.0); PLATELET COUNT (AUTO) 180 /CMM (150-450); RED BLOOD CELL COUNT(AUTO) 4.71 MIL/uL (4.5-6.0); WHITE BLOOD COUNT (AUTO) 6.6 K/uL (4.3-11.0)
[2020-04-01 18:28] LABS: BILIRUBIN,URINE Negative (NEGATIVE); COLOR,URINE YELLOW (YELLOW); LEUKOCYTE ESTERASE ,URINE Negative (NEGATIVE); NITRITE, URINE Negative (NEGATIVE); PH,URINE 5.5 (5.0-8.0); PROTEIN,URINE Negative (NEGATIVE); UGLUCOSE Negative (NEGATIVE); UROBILINOGEN,URINE 0.2 EU/dL (0.2)
[2020-04-01 18:42] LABS: ALANINE AMINOTRANSFERASE 21 U/L (12-78); ALBUMIN 3.9 g/dL (3.4-5.0); ALKALINE PHOSPHATASE 82 U/L (46-116); ASPARTATE AMINOTRANSFERASE 16 U/L (15-37); BILIRUBIN,DIRECT 0.1 mg/dL (0.0-0.2); BILIRUBIN,TOTAL 0.3 mg/dL (0.2-1.0); TOTAL PROTEIN, SERUM 7.2 g/dL (6.4-8.2)
[2020-04-01] MEDS ORDERED: MELA5TAB PO (19:03)
[2020-04-01] MEDS ORDERED: CHOL100062 PO (19:03)
[2020-04-01] MEDS ORDERED: ACET-868 PO (19:03)
[2020-04-01] MEDS ORDERED: ASCO-352 PO (19:03)
[2020-04-01] MEDS ORDERED: MAG30ORA PO (19:03)
[2020-04-01] MEDS ORDERED: SIMV10TA2 PO (19:03)
[2020-04-01] MEDS ORDERED: CLON0.5T PO (19:03)
[2020-04-01] MEDS ORDERED: MAGN400O6 PO (19:03)
[2020-04-01] MEDS ORDERED: DIVA500T2 PO (19:03)
[2020-04-01] MEDS ORDERED: OLAN10TA3 PO (19:03)
[2020-04-01] MEDS ORDERED: ZINC1CAP2 PO (19:03)
[2020-04-01 20:25] LABS: CALCIUM, SERUM 9.2 mg/dL (8.5-10.1); CARBON DIOXIDE 25 mmol/L (21-32); CHLORIDE 104 mmol/L (98-107); GLUCOSE 64 mg/dL (74-106); SODIUM SERUM 140 mmol/L (136-145); UREA NITROGEN, BLOOD 10 mg/dL (7-18)
[2020-04-01 20:26] LABS: ACETAMINOPHEN < 10 ug/ml (10-30); ALCOHOL, BLOOD < 3 mg/dL (0-0)
--- NOTE | 2020-04-01 22:16 | NUR ---
pt becoming more anxious asking about " finding paperwork from [facility] for his PS". Pt made comfortable and given a warm blanket
--- NOTE | 2020-04-02 00:09 | NUR ---
GAVE REPORT TO AURELIA CLINE FOR KWAME
[2020-04-02] MEDS ORDERED: ACETAMINOPHEN 325 MG TABLET PO PRN ×2 (00:30→01:30)
[2020-04-02] MEDS ORDERED: MAGNESIUM HYDROXIDE 30 ML UDC PO PRN ×2 (00:30→01:30)
[2020-04-02] MEDS ORDERED: MAG HYDROX/AL HYDROX/SIMETH 30 ML UDC PO PRN ×2 (00:30→01:30)
[2020-04-02] MEDS ORDERED: BLOOD SUGAR DIAGNOSTIC 1 EACH STRIP IN ONE (01:30)
[2020-04-02] MEDS ORDERED: TEMAZEPAM 7.5 MG CAPSULE PO PRN (01:30)
[2020-04-02 01:45] VITALS: BP 119/76
--- NOTE | 2020-04-02 04:23 | NUR ---
GPS RN NOTES: RECEIVED PATIENT FROM ER ORIGINALLY FROM [facility]. PT ARRIVED THIS UNIT AT 0021 VIA W/C WITH AN ER ESCORT. PT ADMITTED ON 5150 FOR GD. PER HOLD PATIENT ARRIVED [facility] ER PRESENTING WITH PARANOIA AND MEMORY LOSS AND WAS PUT ON HOLD. UPON FACE TO FACE ASSESSMENT PT IS A/O X1-2, DISHEVELED, DISORGANIZED, FOCUSED ON GOING TO [facility] FOR SOME PRESCRIPTIONS, COOPERATIVE, NEEDS FREQUENT REDIRECTION. PT IS CURRENTLY SLEEPING, NO S/S OF DISTRESS, NO COMPLAINS OF PAIN, PT BREATHING IS UNLABORED WITH EQUAL RISE AND FALL OF THE CHEST ON ROOM AIR. PATIENT DENIES SI, HI AT THIS TIME. PATIENT REFUSED TO SIGN ANY PAPER WORK. PT. ADVISED OF HIS HOLD AND PATIENT RIGHTS BOOKLET GIVEN. PATIENT IS UNDER THE PSYCHIATRIC CARE OF DR REAGAN AND MEDICAL CARE OF [facility]. PATIENT BELONGINGS WERE INVENTORIED AND CHECKED FOR CONTRABAND. CONTRABAND REMOVED AND STORED IN PATIENT HALLWAY LOCKER. MRSA NASAL SAMPLE TAKEN, BS 92MG/DL, SKIN ASSESSMENT COMPLETED. PATIENT ORIENTED TO UNIT AND STAFF. PATIENT EDUCATED ON THE USE OF CALL ARRIETA. ALL PATIENT NEEDS HAVE BEEN MET AT THIS TIME AND PATIENT IS CURRENTLY SLEEPING. BED RAILS UP X2 FOR SAFETY. BED IS LOCKED AND IN LOW POSITION. Q 15 MINUTES ROUNDS STARTED. WILL CONTINUE TO MONITOR AND ENDORSE TO AM SHIFT.
[2020-04-02 06:43] VITALS: BP 119/76
[2020-04-02] MEDS: ZINC SULFATE 220 MG CAPSULE PO SCH ×2 (09:00→09:22)
[2020-04-02] MEDS ORDERED: DIVALPROEX SODIUM 500 MG TABLET.DR PO SCH (09:00)
[2020-04-02] MEDS: ASCORBIC ACID 500 MG TABLET PO SCH ×3 (09:00→16:12)
[2020-04-02] MEDS: CHOLECALCIFEROL 1,000 UNIT TABLET (VIT D3) PO SCH ×4 (09:00→16:12)
[2020-04-02] MEDS: NICOTINE PATCH (21MG) 21 MG PATCH.TD24 TD SCH (09:22)
[2020-04-02 09:59] VITALS: BP 113/56
--- NOTE | 2020-04-02 11:05 | NUR ---
Cousin Contact: SW called the pts cousin, Freda ([phone]), who stated that she has COVID and to call the pts mother.
--- NOTE | 2020-04-02 11:10 | NUR ---
Family Contact: SW called the pts mother, Jackie ([phone]), and was unable to leave a message as the number is wrong.
--- NOTE | 2020-04-02 11:20 | NUR ---
Initial Discharge Plan: Pt currently resides at a home located at [address] [place] [address]. Per pt, he would like to return to that home. BILL will work with the pt, pts mother, and the MD regarding appropriate discharge planning. SW will form a safe and proper discharge.
[2020-04-02 16:00] VITALS: BP 103/67
[2020-04-02] MEDS: DIVALPROEX SODIUM 500 MG TABLET.DR PO SCH (16:11)
[2020-04-02 20:00] VITALS: BP 114/66
[2020-04-02] MEDS: clonazePAM 0.5 MG TABLET PO SCH (21:14)
[2020-04-02] MEDS: SIMVASTATIN 10 MG TABLET PO SCH (21:17)
[2020-04-02] MEDS: OLANZAPINE 10 MG TABLET PO SCH (21:17)
[2020-04-02] MEDS ORDERED: Medication Not On Formulary EA (Melatonin 10 MG) PO SCH (22:00)
--- NOTE | 2020-04-02 22:11 | NUR ---
GPS/HEAVY MACHINERY OPERATOR NOTES: PT. SELECTIVE WITH MEDS. PT. TOOK CLONAZEPAM 0.5MG PO ORDERED. REFUSED HS SIMVASTATIN 10MG PO AND OLANZAPINE 10MG PO ORDERED. OFFERED 3X. EXPLAINED RISK AND BENEFITS. PT. STILL REFUSED.
[2020-04-03 08:00] VITALS: BP 100/65
[2020-04-03] MEDS: ASCORBIC ACID 500 MG TABLET PO SCH ×2 (09:00→17:00)
[2020-04-03] MEDS: DIVALPROEX SODIUM 500 MG TABLET.DR PO SCH ×3 (09:00→17:00)
[2020-04-03] MEDS: ZINC SULFATE 220 MG CAPSULE PO SCH (09:00)
[2020-04-03] MEDS: CHOLECALCIFEROL 1,000 UNIT TABLET (VIT D3) PO SCH ×3 (09:00→17:00)
--- NOTE | 2020-04-03 09:00 | NUR ---
RN NOTE- GRANDIOSE, DELUSIONS RESPONDING TO INTERNAL STIMULUS PREOCCUPIED, PO INTAKE GOOD, SELECTIVE MED COMPLIANCE ISOLATIVE SHOWERED DENIES ALL
[2020-04-03] MEDS: NICOTINE PATCH (21MG) 21 MG PATCH.TD24 TD SCH (09:26)
[2020-04-03] MEDS: LORAZEPAM 1 MG TABLET PO PRN (09:26)
--- NOTE | 2020-04-03 09:26 | NUR ---
RN NOTE- PT SELECTIVELY TAKING RX. ANXIOUS PACING REQUESTED PRN. ATIVAN 1 MG GIVEN
[2020-04-03 11:35] LABS: BASOPHILS % (AUTO) 0.3 % (0.0-2.0); HEMATOCRIT 47 % (39-51); HEMOGLOBIN 15.7 g/dL (13.5-17.5); LYMPHOCYTES # (AUTO) 1.8 /CMM (0.8-4.8); LYMPHOCYTES % (AUTO) 21.2 % (20.0-44.0); MEAN CORPUSCULAR HGB CONC 33 g/dl (31.0-36.0); MEAN CORPUSCULAR VOLUME 95 fL (80-96); MONOCYTES # (AUTO) 0.7 /CMM (0.1-1.30); MONOCYTES % (AUTO) 7.9 % (2.0-12.0); NEUTROPHILS # (AUTO) 5.7 /CMM (1.8-8.9); NEUTROPHILS % (AUTO) 68.6 % (43.0-81.0); PLATELET COUNT (AUTO) 168 /CMM (150-450); RED BLOOD CELL COUNT(AUTO) 4.97 MIL/uL (4.5-6.0); WHITE BLOOD COUNT (AUTO) 8.2 K/uL (4.3-11.0)
[2020-04-03 12:31] LABS: CALCIUM, SERUM 8.8 mg/dL (8.5-10.1); CREATININE 1.1 mg/dL (0.6-1.3); POTASSIUM 3.9 mmol/L (3.5-5.1)
[2020-04-03 16:00] VITALS: BP 106/73
[2020-04-03 19:43] VITALS: BP 102/62
[2020-04-03] MEDS: clonazePAM 0.5 MG TABLET PO SCH (21:08)
[2020-04-03] MEDS: SIMVASTATIN 10 MG TABLET PO SCH (21:08)
[2020-04-03] MEDS: OLANZAPINE 10 MG TABLET PO SCH (21:08)
--- NOTE | 2020-04-03 21:09 | NUR ---
RN NOTES: REFUSAL MEDICATION PT. REFUSED NIGHT SCHEDULE MEDS , ZOCOR 10 MG PO, ZYPREXA 10 MG PO , ENCOURAGED X3 STRONGLY REFUSED . PT. TOOK KLONOPIN 5 MG PO SCHEDULE MEDS ,
--- NOTE | 2020-04-04 07:00 | NUR ---
RN OPENING NOTE PT STANDING IN DOORWAY. PT IS A/O X2 AND IS ABLE TO MAKE NEEDS KNOWN TO THE NURSES. CALM DEMEANOR. PT DENIES ANY SI OR HI. PT SHOWS NO SIGNS OF RESPIRATORY DISTRESS OR SOB. NO COMPLAINT OF PAIN. PT IS ABLE TO AMBULATE INDEPENDENTLY. SAFETY MEASURES IMPLEMENTED. SIDE RAILS RAISED. LOWERED BED. CALL LIGHT WITHIN REACH.
[2020-04-04 08:00] VITALS: BP 112/73
[2020-04-04] MEDS: NICOTINE PATCH (21MG) 21 MG PATCH.TD24 TD SCH (08:40)
[2020-04-04] MEDS: ZINC SULFATE 220 MG CAPSULE PO SCH (09:00)
[2020-04-04] MEDS: ASCORBIC ACID 500 MG TABLET PO SCH ×2 (09:00→17:00)
[2020-04-04] MEDS: CHOLECALCIFEROL 1,000 UNIT TABLET (VIT D3) PO SCH ×3 (09:00→17:00)
[2020-04-04] MEDS: DIVALPROEX SODIUM 500 MG TABLET.DR PO SCH ×3 (09:00→17:00)
[2020-04-04 16:00] VITALS: BP 115/71
--- NOTE | 2020-04-04 18:24 | NUR ---
ZYGLO INSPECTOR NOTE PT REFUSED MAJORITY OF SCHEDULED MEDS. ZOCOR 10MG, OLANZAPINE 10 MG, DEPAKOTE 500MG, VIT C 1000MG, VITAMIN D3 1000U, ZINCATE 220 MG. ONLY MED GIVEN ARE NICOTINE PATCH 21 MG AT 0840.
--- NOTE | 2020-04-04 18:28 | NUR ---
PT AWAKE IN BED. PT IS A/O X3 AND IS ABLE TO MAKE NEEDS KNOWN TO THE NURSES. FRUSTRATED DEMEANOR AT SELF DUE TO INABILITY TO FIX INSULIN PUMP AT THE TIME. PT IS COMPLAINT WITH SCHEDULED MEDICATION. PT DENIES ANY SI OR HI. PT SHOWS NO SIGNS OF RESPIRATORY DISTRESS OR SOB. NO CURRENT COMPLAINTS OF PAIN. PT IS ABLE TO AMBULATE INDEPENDENTLY. ROUTINE MEDS GIVEN. SAFETY MEASURES IMPLEMENTED. SIDE RAILS RAISED. LOWERED BED. CALL LIGHT WITHIN REACH. Addendum: 04/04/20 at 1831 by BUFFY BUTLER RN WRONG PATIENT NOTE, PLEASE IGNORE
--- NOTE | 2020-04-04 18:32 | NUR ---
RN CLOSING NOTE PT RESTING IN BED. PT IS A/O X1 AND IS ABLE TO MAKE NEEDS KNOWN TO THE NURSES. PT IS CALM DEMEANOR. VISUAL HALLUCINATIONS PRESENT. PT IS NON COMPLAINT WITH MOST SCHEDULED MEDICATION. PT EXPRESSES ONLY WANTING HIS NICOTINE PATCH AND BENZOS. ONLY NICOTINE PATCH GIVEN. PT DENIES ANY SI OR HI. PT SHOWS NO SIGNS OF RESPIRATORY DISTRESS OR SOB. NO CURRENT COMPLAINTS OF PAIN. PT IS ABLE TO AMBULATE INDEPENDENTLY. SAFETY MEASURES IMPLEMENTED. SIDE RAILS RAISED. LOWERED BED. CALL LIGHT WITHIN REACH.
[2020-04-04 20:00] VITALS: BP 111/73
[2020-04-04] MEDS: clonazePAM 0.5 MG TABLET PO SCH (21:19)
[2020-04-04] MEDS: SIMVASTATIN 10 MG TABLET PO SCH (21:45)
[2020-04-04] MEDS: OLANZAPINE 10 MG TABLET PO SCH (21:45)
--- NOTE | 2020-04-04 21:47 | NUR ---
GPS-RN NOTES: REFUSAL OF MEDS PATIENT REFUSED ZOCOR AND ZYPREXA DOSE FOR TONIGHT. EXPLAINED THE IMPORTANCE OF MEDICATION COMPLIANCE BUT PATIENT CONTINUED TO REFUSE. WILL CONTINUE TO MONITOR.
[2020-04-05 08:00] VITALS: BP 96/61
[2020-04-05] MEDS: ZINC SULFATE 220 MG CAPSULE PO SCH (09:00)
[2020-04-05] MEDS: CHOLECALCIFEROL 1,000 UNIT TABLET (VIT D3) PO SCH ×3 (09:00→17:00)
[2020-04-05] MEDS: ASCORBIC ACID 500 MG TABLET PO SCH ×2 (09:00→17:00)
[2020-04-05] MEDS: DIVALPROEX SODIUM 500 MG TABLET.DR PO SCH ×3 (09:00→17:00)
[2020-04-05] MEDS: NICOTINE PATCH (21MG) 21 MG PATCH.TD24 TD SCH (09:00)
[2020-04-05 16:00] VITALS: BP 114/64
[2020-04-05 20:00] VITALS: BP 118/68
[2020-04-05] MEDS: clonazePAM 0.5 MG TABLET PO SCH (22:00)
[2020-04-05] MEDS: SIMVASTATIN 10 MG TABLET PO SCH (22:00)
[2020-04-05] MEDS: OLANZAPINE 10 MG TABLET PO SCH (22:00)
--- NOTE | 2020-04-05 22:01 | NUR ---
nurses notes: patient refused his scheduled medication- zyprexa, zocor and klonopin. per patient he only takes klonopin that is orange in color. publicity writer explained that this is that same medication- patient still refused despite writers explanation. will continue to monitor.
--- NOTE | 2020-04-06 03:30 | NUR ---
NURSES NOTES:WASTE OF KLONOPIN MEDICATION: PATIENT'S KLONOPIN MEDICATION OS FOR WASTE SINCE PATIENT REFUSEDIT DURING THE TIME IT WAS SCHEDULED. IT TOOK A WHILE FOR MORTGAGE BRANCH MANAGER TO LOOK FOR A NURSE AVAILABLE TO COME AND WITNESS THE WASTE. SHANELL SUB ACUTE ORACLE CONSULTANT CAME TO WITNESS THE WASTE IN THE OMNICELL HOWEVER, THE OMNICELL DID NOT ASK FOR THE WITNESS'S NUMBER AND THUMBPRINT. AURELIA REECE DID WITNESS THE WASTE OF THE MEDICATION. PHARMACY STAFF NOTIFIED.
[2020-04-06] MEDS: CHOLECALCIFEROL 1,000 UNIT TABLET (VIT D3) PO SCH ×3 (09:00→17:00)
[2020-04-06] MEDS: ZINC SULFATE 220 MG CAPSULE PO SCH (09:00)
[2020-04-06] MEDS: NICOTINE PATCH (21MG) 21 MG PATCH.TD24 TD SCH (09:00)
[2020-04-06] MEDS: DIVALPROEX SODIUM 500 MG TABLET.DR PO SCH ×3 (09:00→17:00)
[2020-04-06] MEDS: ASCORBIC ACID 500 MG TABLET PO SCH ×2 (09:00→17:00)
--- NOTE | 2020-04-06 09:05 | NUR ---
SW Coordination of Care: This SW contacted Eren Barnett ([phone]) and sent clinicals to [facility] as REBECCA Brown stated pt was from there. Eren will check and let this SW know or will help with placement.
--- NOTE | 2020-04-06 09:05 | NUR ---
Family Contact: SW called the pts mother, Jackie ([phone]), and was unable to leave a message as the number is wrong.
--- NOTE | 2020-04-06 09:37 | NUR ---
SW Coordination of Care: This SW contacted Eren Barnett ([phone]) and stated pt was at [facility] 11/08/19 and stated they will accept pt back upon discharge.
[2020-04-06 11:25] VITALS: BP 102/72
--- NOTE | 2020-04-06 15:32 | NUR ---
SNF Contact: Eren Barnett ([phone]) contacted this SW and stated pt is accepted at [facility].
[2020-04-06 16:45] VITALS: BP 115/77
[2020-04-06] MEDS: SIMVASTATIN 10 MG TABLET PO SCH (22:00)
[2020-04-06] MEDS: OLANZAPINE 10 MG TABLET PO SCH (22:00)
[2020-04-06] MEDS: clonazePAM 0.5 MG TABLET PO SCH (22:00)
--- NOTE | 2020-04-06 22:48 | NUR ---
GPS RN NOTES: PATIENT REFUSED ALL PM MEDS. PATIENT INITIALLY AGREED TO TAKE KLONOPIN BUT CHANGED HIS MIND BECAUSE PER PATIENT " THE COLOR IS DIFFERENT, I TAKE THE BLUE ONE". EDUCATION ABOUT THE COLOR PROVIDED BUT PATIENT STILL REFUSED ALL MEDS. WILL CONTINUE TO MONITOR THROUGHOUT SHIFT.
[2020-04-07 03:12] VITALS: BP 126/79
--- NOTE | 2020-04-07 07:06 | NUR ---
GPS RN CLOSING NOTES: PATIENT IS IN BED SLEEPING COMFORTABLY. RESPIRATION EVEN AND UNLABORED WITH EQUAL RISE AND FALL OF THE CHEST ON ROOM AIR. NO S/S OF DISTRESS. PATIENT REFUSED ALL MEDS THIS SHIFT. DR REAGAN AWARE OF PATIENT CONTINUAL REFUSAL OF HIS MEDICATIONS. REISED PAPERS HAVE BEEN SIGNED BY DR REAGAN LAST NIGHT. SAFETY PRECAUTION MAINTAINED, BED IN LOWEST POSITION AND LOCKED. Q15 MINUTES SAFETY ROUND CONTINUED. ALL PATIENT CARE NEEDS HAVE BEEN MET ANTICIPATED. WILL CONTINUE TO MONITOR PATIENT FOR MOOD, BEHAVIOR AND SAFETY AND ENDORSE TO AM SHIFT
[2020-04-07 08:00] VITALS: BP 106/69
[2020-04-07] MEDS: DIVALPROEX SODIUM 500 MG TABLET.DR PO SCH ×3 (09:00→17:00)
[2020-04-07] MEDS: ZINC SULFATE 220 MG CAPSULE PO SCH (09:00)
[2020-04-07] MEDS: ASCORBIC ACID 500 MG TABLET PO SCH ×2 (09:00→17:00)
[2020-04-07] MEDS: CHOLECALCIFEROL 1,000 UNIT TABLET (VIT D3) PO SCH ×3 (09:00→17:00)
[2020-04-07] MEDS: NICOTINE PATCH (21MG) 21 MG PATCH.TD24 TD SCH (09:00)
[2020-04-07 16:00] VITALS: BP 104/69
[2020-04-07] MEDS: clonazePAM 0.5 MG TABLET PO SCH (21:19)
[2020-04-07] MEDS: OLANZAPINE 10 MG TABLET PO SCH (22:00)
[2020-04-07] MEDS: SIMVASTATIN 10 MG TABLET PO SCH (22:00)
[2020-04-08 08:00] VITALS: BP 114/82
[2020-04-08] MEDS: clonazePAM 0.5 MG TABLET PO SCH ×2 (08:35→21:00)
[2020-04-08] MEDS: CHOLECALCIFEROL 1,000 UNIT TABLET (VIT D3) PO SCH ×3 (08:44→16:30)
[2020-04-08] MEDS: ZINC SULFATE 220 MG CAPSULE PO SCH (08:44)
[2020-04-08] MEDS: DIVALPROEX SODIUM 500 MG TABLET.DR PO SCH ×3 (08:44→16:30)
[2020-04-08] MEDS: ASCORBIC ACID 500 MG TABLET PO SCH ×2 (08:44→16:30)
[2020-04-08] MEDS: NICOTINE PATCH (21MG) 21 MG PATCH.TD24 TD SCH (08:44)
--- NOTE | 2020-04-08 08:45 | NUR ---
RN-CO: PATIENT REMAINS VERY DELUSIONAL AND PARANOID. HE REFUSED ALL HIS AM MEDS EXCEPT THE KLONOPIN WHICH HE DOUBTED WHY THE COLOR IS NOT ORANGE. 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
--- NOTE | 2020-04-08 12:19 | NUR ---
RN-CO: ASKED PATIENT IF HE WANT TO TAKE HIS 1300 MEDICATIONS, HE STATED " NO I DON'T NEED THEM, IT WILL MESS ME UP." I ENC HIM 2X BUT FIRMLY REFUSED.
--- NOTE | 2020-04-08 16:14 | NUR ---
RN-CO: I ASKED PATIENT IF HE CHANGED HIS MIND IF HE WANT TO TAKE HIS VIT C AND D INCL. DEPAKOTE. HE REFUSED AGAIN. I EXPLAINED THE RISK AND BENEFITS BUT FIRMLY REFUSED. DR REAGAN FILED A RIESED PETITION.
[2020-04-08 16:56] VITALS: BP 100/61
[2020-04-08 19:57] VITALS: BP 107/61
[2020-04-08] MEDS: HALOPERIDOL 5 MG TABLET PO SCH (22:00)
[2020-04-08] MEDS: BENZTROPINE MESYLATE (1 MG) 1 MG TABLET PO SCH (22:00)
[2020-04-08] MEDS: SIMVASTATIN 10 MG TABLET PO SCH (22:00)
[2020-04-08] MEDS: HALOPERIDOL LACTATE INJ 5 MG/ML VIAL IM PRN (22:40)
[2020-04-08] MEDS: diphenhydrAMINE HCL 50 MG/ML VIAL IM PRN (22:41)
--- NOTE | 2020-04-09 07:55 | NUR ---
RN-CO: I ASKED PATIENT IF HE WANT TO TAKE HIS MORNING MEDICATION BY MOUTH, HE REFUSED AGAIN.
[2020-04-09 08:00] VITALS: BP 103/53
[2020-04-09] MEDS: CHOLECALCIFEROL 1,000 UNIT TABLET (VIT D3) PO SCH ×3 (08:03→16:44)
[2020-04-09] MEDS: DIVALPROEX SODIUM 500 MG TABLET.DR PO SCH ×3 (08:03→16:43)
[2020-04-09] MEDS: BENZTROPINE MESYLATE (1 MG) 1 MG TABLET PO SCH ×3 (08:03→16:43)
[2020-04-09] MEDS: ZINC SULFATE 220 MG CAPSULE PO SCH (08:03)
[2020-04-09] MEDS: ASCORBIC ACID 500 MG TABLET PO SCH ×2 (08:03→16:43)
[2020-04-09] MEDS: HALOPERIDOL 5 MG TABLET PO SCH ×3 (08:03→16:43)
[2020-04-09] MEDS: NICOTINE PATCH (21MG) 21 MG PATCH.TD24 TD SCH ×2 (08:04→08:22)
[2020-04-09] MEDS: HALOPERIDOL LACTATE INJ 5 MG/ML VIAL IM PRN ×2 (08:23→16:44)
[2020-04-09] MEDS: diphenhydrAMINE HCL 50 MG/ML VIAL IM PRN ×2 (08:23→16:44)
[2020-04-09] MEDS: clonazePAM 0.5 MG TABLET PO SCH ×2 (08:37→21:15)
[2020-04-09 16:00] VITALS: BP 108/54
[2020-04-09 20:12] VITALS: BP 110/52
[2020-04-09 20:16] VITALS: BP_SYST 100; BP_SYST 107; BP_DIAS 59; BP_DIAS 61
[2020-04-09] MEDS: SIMVASTATIN 10 MG TABLET PO SCH (22:00)
[2020-04-10 08:00] VITALS: BP 100/58
[2020-04-10] MEDS: CHOLECALCIFEROL 1,000 UNIT TABLET (VIT D3) PO SCH ×4 (09:00→17:00)
[2020-04-10] MEDS: DIVALPROEX SODIUM 500 MG TABLET.DR PO SCH ×4 (09:00→17:00)
[2020-04-10] MEDS: ASCORBIC ACID 500 MG TABLET PO SCH ×3 (09:00→17:00)
[2020-04-10] MEDS: ZINC SULFATE 220 MG CAPSULE PO SCH ×2 (09:00→09:05)
--- NOTE | 2020-04-10 09:00 | NUR ---
RN NOTE- PT OPPOSITIONAL LOUD INTRUSIVE AT TIMES RESPONDING TO INTERNAL STIMULUS. DELUSIONAL
[2020-04-10] MEDS: BENZTROPINE MESYLATE (1 MG) 1 MG TABLET PO SCH ×4 (09:05→17:12)
[2020-04-10] MEDS: clonazePAM 0.5 MG TABLET PO SCH ×2 (09:05→20:40)
[2020-04-10] MEDS: NICOTINE PATCH (21MG) 21 MG PATCH.TD24 TD SCH (09:05)
[2020-04-10] MEDS: HALOPERIDOL 5 MG TABLET PO SCH ×4 (09:06→17:12)
--- NOTE | 2020-04-10 11:54 | NUR ---
Individual Counseling: political worker met with patient for brief counseling to help address patients presenting problem with disorganized thought content. Patient is unable to engage in a meaningful conversation and required constant re-direction. Patient appeared paranoid and delusional, he kept talking about "leaving the hospital". This SW was unable to conduct proper counseling at this time.
[2020-04-10] MEDS: LORAZEPAM 1 MG TABLET PO PRN (14:05)
--- NOTE | 2020-04-10 14:05 | NUR ---
RN NOTE- ANXIETY RESTLESSNESS. ATIVAN 1 MG GIVEN
[2020-04-10 16:00] VITALS: BP 103/60
[2020-04-10 20:00] VITALS: BP 100/65
[2020-04-10] MEDS: SIMVASTATIN 10 MG TABLET PO SCH (21:55)
--- NOTE | 2020-04-10 21:55 | NUR ---
GPS-RN NOTES: REFUSAL OF MEDS PATIENT REFUSED ZOCOR DOSE FOR TONIGHT. ENCOURAGED, EXPLAINED THE IMPORTANCE OF MEDICATION COMPLIANCE BUT PATIENT CONTINUED TO REFUSE. WILL CONTINUE TO MONITOR.
--- NOTE | 2020-04-11 07:08 | NUR ---
RN NOTES: PT. RESTING HIS BED, NO ACUTE DISTRESS NOTES , NO CHANGE OF CONDITION NOTED , DENIES ANY PAIN DISCOMFORT AT THIS TIME , ALL NEEDS ATTENDED AND ANTICIPATED, WILL ENDORSE TO DAY NURSE FOR CONTINUITY OF CARE .
[2020-04-11 08:00] VITALS: BP 100/53
[2020-04-11] MEDS: BENZTROPINE MESYLATE (1 MG) 1 MG TABLET PO SCH ×3 (08:59→17:20)
[2020-04-11] MEDS: clonazePAM 0.5 MG TABLET PO SCH ×2 (08:59→20:44)
[2020-04-11] MEDS: HALOPERIDOL 5 MG TABLET PO SCH ×3 (08:59→17:20)
[2020-04-11] MEDS: DIVALPROEX SODIUM 500 MG TABLET.DR PO SCH ×3 (09:00→17:00)
[2020-04-11] MEDS: ASCORBIC ACID 500 MG TABLET PO SCH ×2 (09:00→17:00)
[2020-04-11] MEDS: ZINC SULFATE 220 MG CAPSULE PO SCH (09:00)
[2020-04-11] MEDS: NICOTINE PATCH (21MG) 21 MG PATCH.TD24 TD SCH (09:00)
[2020-04-11] MEDS: CHOLECALCIFEROL 1,000 UNIT TABLET (VIT D3) PO SCH ×3 (09:00→17:00)
[2020-04-11 16:00] VITALS: BP 106/59
[2020-04-11 20:02] VITALS: BP 112/70
[2020-04-11] MEDS: SIMVASTATIN 10 MG TABLET PO SCH (21:13)
--- NOTE | 2020-04-12 06:56 | NUR ---
RN NOTES: PT. RESTING HIS BED, NO ACUTE DISTRESS NOTES , NO CHANGE OF CONDITION NOTED , NO BEHAVIOR PROBLEMS NOTED IN SHIFT,DENIES ANY PAIN DISCOMFORT AT THIS TIME , ALL NEEDS ATTENDED AND ANTICIPATED, WILL ENDORSE TO DAY NURSE FOR CONTINUITY OF CARE .
[2020-04-12 08:00] VITALS: BP 104/67
[2020-04-12] MEDS: DIVALPROEX SODIUM 500 MG TABLET.DR PO SCH ×3 (09:00→17:18)
[2020-04-12] MEDS: ZINC SULFATE 220 MG CAPSULE PO SCH (09:00)
[2020-04-12] MEDS: ASCORBIC ACID 500 MG TABLET PO SCH ×2 (09:00→17:22)
[2020-04-12] MEDS: CHOLECALCIFEROL 1,000 UNIT TABLET (VIT D3) PO SCH ×3 (09:00→17:19)
[2020-04-12] MEDS: HALOPERIDOL 5 MG TABLET PO SCH ×3 (09:00→19:09)
[2020-04-12] MEDS: BENZTROPINE MESYLATE (1 MG) 1 MG TABLET PO SCH ×3 (09:00→17:18)
[2020-04-12] MEDS: NICOTINE PATCH (21MG) 21 MG PATCH.TD24 TD SCH (09:17)
[2020-04-12] MEDS: clonazePAM 0.5 MG TABLET PO SCH ×2 (09:17→20:49)
--- NOTE | 2020-04-12 09:21 | NUR ---
RN NOTES PATIENT VERBALIZED "I CAN ONLY TAKE KLONOPIN AND NICOTINE PATCH, OTHER MEDICATION GIVE ME CONFUSION' "I HAVE MY OWN DOCTOR, DOCTOR HERE GIVE ME CONFUSION". EXPLAINED THE RISK AND BENEFITS PATIENT STILL REFUSING. WILL CONTINUE TO MONITOR.
[2020-04-12] MEDS: HALOPERIDOL LACTATE INJ 5 MG/ML VIAL IM PRN (11:38)
[2020-04-12 16:00] VITALS: BP 120/80
[2020-04-12 20:00] VITALS: BP 117/76
[2020-04-12] MEDS: SIMVASTATIN 10 MG TABLET PO SCH (21:10)
--- NOTE | 2020-04-13 03:26 | NUR ---
RN NOTES: REFUSED SKIN ASSESSMENT PATIENT REFUSED WEEKLY SKIN ASSESSMENT AND TAKEN PHOTOS. ENCOURAGED, EXPLAINED RISKS BENFITS, BUT PATIENT CONTINUED TO REFUSE. WILL CONTINUE TO MONITOR.
[2020-04-13 08:00] VITALS: BP 101/60
[2020-04-13] MEDS: BENZTROPINE MESYLATE (1 MG) 1 MG TABLET PO SCH ×3 (08:38→16:56)
[2020-04-13] MEDS: HALOPERIDOL 5 MG TABLET PO SCH ×3 (08:38→16:56)
[2020-04-13] MEDS: ASCORBIC ACID 500 MG TABLET PO SCH ×2 (08:38→16:56)
[2020-04-13] MEDS: NICOTINE PATCH (21MG) 21 MG PATCH.TD24 TD SCH (08:38)
[2020-04-13] MEDS: DIVALPROEX SODIUM 500 MG TABLET.DR PO SCH ×3 (08:38→16:56)
[2020-04-13] MEDS: clonazePAM 0.5 MG TABLET PO SCH ×2 (08:38→21:49)
[2020-04-13] MEDS: ZINC SULFATE 220 MG CAPSULE PO SCH (08:39)
[2020-04-13] MEDS: CHOLECALCIFEROL 1,000 UNIT TABLET (VIT D3) PO SCH ×3 (08:39→16:56)
--- NOTE | 2020-04-13 09:00 | NUR ---
RN NOTE- PT AMBULATING HALLS AND ROOM TALKING TO SELF, INTERNALLY PREOCCUPIED, LAUGHING AGAIN INAPPROPRIATELY, FOCUS ON DC DELUSIONAL DIRECTABLE SELECTIVE MED COMPLIANCE
[2020-04-13 16:00] VITALS: BP 126/90
[2020-04-13 20:00] VITALS: BP 79/53
[2020-04-13 21:41] VITALS: BP 93/55
[2020-04-13] MEDS: SIMVASTATIN 10 MG TABLET PO SCH (21:49)
--- NOTE | 2020-04-14 06:46 | NUR ---
GPS RN CLOSING NOTES: PATIENT IS IN BED SLEEPING COMFORTABLY. PATIENT SLEPT 9HRS THIS SHIFT. MED COMPLIANT THIS SHIFT. RESPIRATION EVEN AND UNLABORED WITH EQUAL RISE AND FALL OF THE CHEST ON ROOM AIR. NO S/S OF DISTRESS. SAFETY PRECAUTION MAINTAINED, BED IN LOWEST POSITION AND LOCKED. Q15 MINUTES SAFETY ROUND CONTINUED. ALL PATIENT CARE NEEDS MET AT THIS TIME. WILL CONTINUE TO MONITOR PATIENT FOR MOOD, BEHAVIOR AND SAFETY AND ENDORSE TO AM SHIFT.
[2020-04-14 08:00] VITALS: BP 91/60
[2020-04-14] MEDS: HALOPERIDOL 5 MG TABLET PO SCH ×3 (08:45→16:20)
[2020-04-14] MEDS: NICOTINE PATCH (21MG) 21 MG PATCH.TD24 TD SCH (08:45)
[2020-04-14] MEDS: BENZTROPINE MESYLATE (1 MG) 1 MG TABLET PO SCH ×3 (08:45→16:20)
[2020-04-14] MEDS: ZINC SULFATE 220 MG CAPSULE PO SCH (08:46)
[2020-04-14] MEDS: CHOLECALCIFEROL 1,000 UNIT TABLET (VIT D3) PO SCH ×3 (08:46→16:22)
[2020-04-14] MEDS: DIVALPROEX SODIUM 500 MG TABLET.DR PO SCH ×3 (08:46→16:21)
[2020-04-14] MEDS: ASCORBIC ACID 500 MG TABLET PO SCH ×2 (08:46→16:21)
[2020-04-14] MEDS: clonazePAM 0.5 MG TABLET PO SCH ×2 (08:49→21:16)
--- NOTE | 2020-04-14 09:00 | NUR ---
RN NOTE- UNCHANGED SINCE YESTERDAY. VISIBLE ON UNIT. PT AMBULATING HALLS AND ROOM TALKING TO SELF, INTERNALLY PREOCCUPIED, LAUGHING AGAIN INAPPROPRIATELY, FOCUS ON DC DELUSIONAL DIRECTABLE SELECTIVE MED COMPLIANCE
[2020-04-14 16:00] VITALS: BP 101/63
[2020-04-14 21:02] VITALS: BP 104/63
[2020-04-14] MEDS: SIMVASTATIN 10 MG TABLET PO SCH (21:16)
[2020-04-15 08:00] VITALS: BP 92/59
[2020-04-15] MEDS: ASCORBIC ACID 500 MG TABLET PO SCH ×3 (09:00→17:00)
[2020-04-15] MEDS: DIVALPROEX SODIUM 500 MG TABLET.DR PO SCH ×4 (09:00→17:00)
[2020-04-15] MEDS: CHOLECALCIFEROL 1,000 UNIT TABLET (VIT D3) PO SCH ×4 (09:00→17:00)
[2020-04-15] MEDS: BENZTROPINE MESYLATE (1 MG) 1 MG TABLET PO SCH ×4 (09:00→17:00)
[2020-04-15] MEDS: NICOTINE PATCH (21MG) 21 MG PATCH.TD24 TD SCH (09:31)
[2020-04-15] MEDS: clonazePAM 0.5 MG TABLET PO SCH ×2 (09:32→21:31)
[2020-04-15] MEDS: ZINC SULFATE 220 MG CAPSULE PO SCH (09:32)
[2020-04-15] MEDS: HALOPERIDOL 5 MG TABLET PO SCH ×3 (09:32→17:42)
[2020-04-15 16:00] VITALS: BP 98/65
--- NOTE | 2020-04-15 18:00 | NUR ---
refusing all meds but klonopin and haldol.
[2020-04-15 20:30] VITALS: BP 109/56
[2020-04-15] MEDS: SIMVASTATIN 10 MG TABLET PO SCH (21:31)
[2020-04-16 08:00] VITALS: BP 94/51
[2020-04-16] MEDS: CHOLECALCIFEROL 1,000 UNIT TABLET (VIT D3) PO SCH ×3 (09:00→16:43)
[2020-04-16] MEDS: BENZTROPINE MESYLATE (1 MG) 1 MG TABLET PO SCH ×4 (09:00→21:17)
[2020-04-16] MEDS: VALPROIC ACID 250 MG/5 ML UDC PO SCH ×2 (09:00→21:00)
[2020-04-16] MEDS: ZINC SULFATE 220 MG CAPSULE PO SCH (09:00)
[2020-04-16] MEDS: ASCORBIC ACID 500 MG TABLET PO SCH ×2 (09:00→16:43)
[2020-04-16] MEDS: clonazePAM 0.5 MG TABLET PO SCH ×2 (09:15→20:47)
[2020-04-16] MEDS: HALOPERIDOL 5 MG TABLET PO SCH ×4 (09:16→21:50)
[2020-04-16] MEDS: NICOTINE PATCH (21MG) 21 MG PATCH.TD24 TD SCH (09:17)
--- NOTE | 2020-04-16 15:17 | NUR ---
Cousin Contact: BILL called the pts cousin, Freda ([phone]), and informed her that the pt is going to be discharged to a shelter the following day. BILL then received the pts mothers phone number from her to inform her.
--- NOTE | 2020-04-16 15:33 | NUR ---
Family Contact: SW called the pts mother, Cori ([phone]), and informed her that the pt is going to be discharged to [facility] the following day.
--- NOTE | 2020-04-16 15:34 | NUR ---
Individual Intervention: SW asked the pt to speak to her about his understanding with his discharge plan and he stated that he was going to be discharged to [facility] because "he owns it." SW stated that he was going to be discharged to a SNF where he came from and pt stated that he does not understand this plan.
[2020-04-16 16:00] VITALS: BP 106/69
[2020-04-16 20:24] VITALS: BP 108/76
[2020-04-16] MEDS: SIMVASTATIN 10 MG TABLET PO SCH (21:19)
--- NOTE | 2020-04-16 21:21 | NUR ---
GPS-RN NOTES: REFUSAL OF MEDS PATIENT REFUSED ZOCOR 10 MG PO , VALPORIC ACID 10 ML DOSE FOR TONIGHT. ENCOURAGED, EXPLAINED THE IMPORTANCE OF MEDICATION COMPLIANCE BUT PATIENT CONTINUED TO REFUSE. DR. YEE MADE AWRE ,WILL CONTINUE TO MONITOR.
[2020-04-17 08:00] VITALS: BP 113/62
[2020-04-17] MEDS: BENZTROPINE MESYLATE (1 MG) 1 MG TABLET PO SCH ×3 (08:03→16:36)
[2020-04-17] MEDS: NICOTINE PATCH (21MG) 21 MG PATCH.TD24 TD SCH (08:03)
[2020-04-17] MEDS: clonazePAM 0.5 MG TABLET PO SCH ×2 (08:03→20:25)
[2020-04-17] MEDS: HALOPERIDOL 5 MG TABLET PO SCH ×3 (08:11→21:37)
[2020-04-17] MEDS: VALPROIC ACID 250 MG/5 ML UDC PO SCH ×2 (08:14→21:00)
[2020-04-17] MEDS: CHOLECALCIFEROL 1,000 UNIT TABLET (VIT D3) PO SCH ×3 (08:14→16:38)
[2020-04-17] MEDS: ASCORBIC ACID 500 MG TABLET PO SCH ×2 (08:14→16:37)
[2020-04-17] MEDS: ZINC SULFATE 220 MG CAPSULE PO SCH (08:15)
[2020-04-17] MEDS ORDERED: HALOPERIDOL DECANOATE IM 100 MG/ML AMPUL IM ONE (09:00)
--- NOTE | 2020-04-17 09:00 | NUR ---
RN NOTE- PT ALERT DELUSIONAL PSYCHOTIC AT PRESENT LAUGHING INAPPROPRIATELY RESPONDING INTERNALLY PREOCCUPIED. HALDOL DEC GIVEN IM TODAY
--- NOTE | 2020-04-17 12:17 | NUR ---
Individual Intervention: SW met with the pt and informed him that the pt is not being discharged today as there is still some acute need for the pt to be in the hospital. SW stated that he will discharged sometime after the weekend and the pt expressed that he understood. Pt continues to have the delusion that he will be discharged to [facility] because he owns that hospital.
--- NOTE | 2020-04-17 14:21 | NUR ---
Family Contact: BILL called the pts mother, Cori ([phone]), and informed her that the pt is going to be discharged to [facility] sometime after the weekend as he needs to stabilize on the haldol decanote.
[2020-04-17 16:00] VITALS: BP 101/63
[2020-04-17 20:09] VITALS: BP 106/65
[2020-04-17] MEDS: SIMVASTATIN 10 MG TABLET PO SCH (21:36)
--- NOTE | 2020-04-18 07:30 | NUR ---
AMBLING ABOUT HALLS,ALERT AND ORIENTED X3.PLEASANT.
[2020-04-18 08:00] VITALS: BP 101/63
[2020-04-18] MEDS: HALOPERIDOL 5 MG TABLET PO SCH ×3 (08:20→21:10)
[2020-04-18] MEDS: BENZTROPINE MESYLATE (1 MG) 1 MG TABLET PO SCH ×3 (08:20→16:49)
[2020-04-18] MEDS: clonazePAM 0.5 MG TABLET PO SCH ×2 (08:20→21:10)
[2020-04-18] MEDS: NICOTINE PATCH (21MG) 21 MG PATCH.TD24 TD SCH (08:29)
[2020-04-18] MEDS: ZINC SULFATE 220 MG CAPSULE PO SCH (08:40)
[2020-04-18] MEDS: ASCORBIC ACID 500 MG TABLET PO SCH ×2 (08:40→16:47)
[2020-04-18] MEDS: VALPROIC ACID 250 MG/5 ML UDC PO SCH ×2 (08:40→21:00)
[2020-04-18] MEDS: CHOLECALCIFEROL 1,000 UNIT TABLET (VIT D3) PO SCH ×3 (08:40→16:48)
--- NOTE | 2020-04-18 08:41 | NUR ---
pt. refused all am meds but nicotine patch.[email or web address]
--- NOTE | 2020-04-18 09:00 | NUR ---
RN-CO: NOTIFIED DR WONG REGARDING THE 14 DAY HOLD EXPIRING TODAY.
[2020-04-18 16:00] VITALS: BP 96/58
--- NOTE | 2020-04-18 17:36 | NUR ---
PT. STATUS QUO,YELLS OUT FROM TIME TO TIME.DENIES NEED OF ATIVAN.
--- NOTE | 2020-04-18 18:33 | NUR ---
RN-CO: DR WONG ORDERED 5270 OR 30 DAY HOLD AND DISCONTINUED RIESED INCLUDING THE BACK UP MEDS, NOTED AND CARRIED OUT.
[2020-04-18 20:07] VITALS: BP 123/48
[2020-04-18] MEDS: SIMVASTATIN 10 MG TABLET PO SCH (21:10)
--- NOTE | 2020-04-18 21:11 | NUR ---
GPS-RN NOTES: REFUSAL OF MEDICATION PATIENT REFUSED DEPAKENE DOSE FOR TONIGHT. EXPLAINED THE IMPORTANCE OF MEDICATION COMPLIANCE BUT PATIENT CONTINUED TO REFUSE. WILL CONTINUE TO MONITOR.
[2020-04-19 08:00] VITALS: BP 119/71
[2020-04-19] MEDS: BENZTROPINE MESYLATE (1 MG) 1 MG TABLET PO SCH ×3 (08:31→16:04)
[2020-04-19] MEDS: HALOPERIDOL 5 MG TABLET PO SCH ×3 (08:31→21:01)
[2020-04-19] MEDS: VALPROIC ACID 250 MG/5 ML UDC PO SCH ×2 (08:31→21:00)
[2020-04-19] MEDS: NICOTINE PATCH (21MG) 21 MG PATCH.TD24 TD SCH (08:31)
[2020-04-19] MEDS: ZINC SULFATE 220 MG CAPSULE PO SCH (08:32)
[2020-04-19] MEDS: clonazePAM 0.5 MG TABLET PO SCH ×2 (08:33→20:59)
[2020-04-19] MEDS: ASCORBIC ACID 500 MG TABLET PO SCH ×2 (08:33→16:04)
[2020-04-19] MEDS: CHOLECALCIFEROL 1,000 UNIT TABLET (VIT D3) PO SCH ×3 (08:34→16:04)
--- NOTE | 2020-04-19 11:14 | NUR ---
RN-CO: PATIENT IS VERY SELECTIVE WITH MEDICATIONS. HE REFUSED ALL VITAMINS AND DEPAKOTE EVEN WITH ENCOURAGEMENT. HE SAID " MY BODY WILL BE RUINED AND MY BRAIN IF I TAKE VITAMINS AND DEPAKOTE."
[2020-04-19 16:00] VITALS: BP 100/61
[2020-04-19 20:00] VITALS: BP 95/63
[2020-04-19] MEDS: SIMVASTATIN 10 MG TABLET PO SCH (21:02)
[2020-04-20 08:00] VITALS: BP 99/86
[2020-04-20] MEDS: clonazePAM 0.5 MG TABLET PO SCH ×2 (08:54→20:13)
[2020-04-20] MEDS: NICOTINE PATCH (21MG) 21 MG PATCH.TD24 TD SCH (08:55)
[2020-04-20] MEDS: VALPROIC ACID 250 MG/5 ML UDC PO SCH ×2 (08:55→21:00)
[2020-04-20] MEDS: HALOPERIDOL 5 MG TABLET PO SCH ×3 (08:55→21:08)
[2020-04-20] MEDS: BENZTROPINE MESYLATE (1 MG) 1 MG TABLET PO SCH ×3 (08:55→16:55)
[2020-04-20] MEDS: ASCORBIC ACID 500 MG TABLET PO SCH ×2 (08:56→16:56)
[2020-04-20] MEDS: CHOLECALCIFEROL 1,000 UNIT TABLET (VIT D3) PO SCH ×3 (08:56→16:57)
[2020-04-20] MEDS: ZINC SULFATE 220 MG CAPSULE PO SCH (08:56)
--- NOTE | 2020-04-20 09:00 | NUR ---
RN NOTE- PT DELUSIONAL GRANDIOSE. LAUGHING INAPPROPRIATELY, PO INTAKE GOOD PACES OH FOCUS ON DC INTERNALLY PREOCCUPIED MED COMPLIANT SELECTIVELY
[2020-04-20 16:00] VITALS: BP 107/63
--- NOTE | 2020-04-20 17:39 | NUR ---
RN NOTE- COVID TEST COMPLETED FOR PLACEMENT. SENT TO LAB
[2020-04-20 19:38] VITALS: BP 104/48
[2020-04-20] MEDS: SIMVASTATIN 10 MG TABLET PO SCH (21:08)
[2020-04-21 08:00] VITALS: BP 100/61
[2020-04-21] MEDS: BENZTROPINE MESYLATE (1 MG) 1 MG TABLET PO SCH ×3 (08:59→17:48)
[2020-04-21] MEDS: VALPROIC ACID 250 MG/5 ML UDC PO SCH ×2 (08:59→09:00)
[2020-04-21] MEDS: NICOTINE PATCH (21MG) 21 MG PATCH.TD24 TD SCH (08:59)
[2020-04-21] MEDS: ZINC SULFATE 220 MG CAPSULE PO SCH (08:59)
[2020-04-21] MEDS: clonazePAM 0.5 MG TABLET PO SCH (08:59)
[2020-04-21] MEDS: CHOLECALCIFEROL 1,000 UNIT TABLET (VIT D3) PO SCH ×3 (08:59→17:48)
[2020-04-21] MEDS: ASCORBIC ACID 500 MG TABLET PO SCH ×2 (08:59→17:48)
[2020-04-21] MEDS: HALOPERIDOL 5 MG TABLET PO SCH ×2 (09:04→17:48)
--- NOTE | 2020-04-21 11:00 | NUR ---
Family Contact: SW called the pts mother, Cori ([phone]), and informed her that the pt is going to be discharged to [facility] today.
--- NOTE | 2020-04-21 11:09 | NUR ---
Discharge Note: Pt will be discharged to [facility] located at [address] [place] [address]; ([phone]). Pt will be transported via [facility] at 4PM. Pts mother, Cori ([phone]), was informed of the discharge. Upon discharge, pt appears to be in a dysphoric mood and presented with a calm affect. Pt denies both suicidal and homicidal ideation as well as auditory and visual hallucinations. Pt appears to be alert and oriented x3 (time, place, and self). Pt appears to be ambulatory with an unsteady gait. Pt appears to be disheveled yet appropriately dressed. Pt will continue to be under the care of psychiatrist, Dr. Gallardo, located at [address] [address], [place] [address]; and washcloth folder, Dr. Vivar, located at [address] [place] [address]; . Pt signed the Choice of Vendor form which was placed in the chart. The multidisciplinary exit care form was done, printed, signed, and given to the patient. Addendum: 04/21/20 at 1251 by BILL WRIGHT Pt will be discharged to Center at [facility] located at [address] [place] [address]; and will be placed in 33C.
--- NOTE | 2020-04-21 11:37 | NUR ---
SNF Contact: Cody ([phone]), truck striker from [facility], contacted the SW and stated that the pt will be rerouted to their sister facility. SW faxed an updated referral for the time being to [phone].
[2020-04-21 16:00] VITALS: BP 100/62
--- NOTE | 2020-04-21 18:00 | NUR ---
Patient refused discharge photos.
--- NOTE | 2020-04-21 18:20 | NUR ---
LPN MEDICAL ASSISTANT NOTE:Patient discharged to [facility] at 18:20in stable condition report given to Chelsea LOPEZ . Pt Compliant with medications ,cooperative with treatment plans .Patient denies suicidal ideations ,homicidal ideations and auditory/visual hallucinations .Behavior improved ,psychiatric treatment plans met educate patient about after care plan (exit -care) and copy provided, Dr. Gallardo and Jn BUTTERFIELD aware of discharge with discharge orders .Returned belongings to patient .Patient discharged with ambulance at 16:00.
[2020-05-16] MEDS ORDERED: HALOPERIDOL DECANOATE IM 100 MG/ML AMPUL IM ONE (09:00)
== END 2020-04-21 18:20 | DRG 885 ==
LOC: ER 17:50 → GPS 23:40
PROVIDERS: ADMIT Psychiatry & Neurology Psychiatry; ATTEND Internal Medicine
DX: F25.9 Schizoaffective disorder, unspecified (principal); E44.1 Mild protein-calorie malnutrition; Z68.1 Body mass index [BMI] 19.9 or less, adult; F17.210 Nicotine dependence, cigarettes, uncomplicated; E78.5 Hyperlipidemia, unspecified; F43.10 Post-traumatic stress disorder, unspecified; M62.81 Muscle weakness (generalized); F29 Unspecified psychosis not due to a substance or known physiological condition; Z20.822 Contact with and (suspected) exposure to COVID-19; F32.9 Major depressive disorder, single episode, unspecified
CPT/HCPCS: 36415; 80048-TC; 80061-TC; 80076-TC; 80164-TC; 82962-TC; 85025-TC; 87081-TC; C9803; G0480; J1200; J1630; J1631